=== PATIENT | male | born 1960 | race Caucasian/White ===

== ENCOUNTER 2021-05-01 14:13 | Inpatient (IN) | payer OTHER ==
[~2021-05-01] VITALS: Ht 170.2 cm; Wt 107.1 kg
--- NOTE | 2021-05-01 14:22 | PHYS DOC ---
Past Medical History Past Medical History: CAD, CHF, Diabetes-Type II, High Cholesterol, Hyper tension, UT Past Surgical History: Coronary Bypass Surgery, Other Additional Past Surgical Histo: R wrist; right foot; cataracts Smoking Status: Former Smoker Alcohol Use: Rarely General Adult EDM: Chief Complaint: LOWER EXTREMITY SWELLING HPI: HPI: Patient is a 61 year old female who presents with report of feeling swollen all over. Symptoms have been progressing for the past few weeks. He has noticed some redness and rash and itching on his feet. He ports dyspnea, dyspnea exertion. He also describes PND and orthopnea symptoms. He denies chest pain. He denies dizziness diaphoresis, nausea vomiting, abdominal pain. He does report abdominal fullness. He has a history of hypertension, high cholesterol, diabetes mellitus. He reports that he has no history of any arrhythmia, he appears to be in atrial fibrillation with RVR. He denies having been told this in the past. However, when I reviewed his records, he was diagnosed with a drip fibrillation with RVR back in 2019. He was told to follow-up with cardiology at that time. Per the inpatient notes, the patient had requested to follow-up with cardiology. The patient has no recollection of this discussion, no recollection of being told he has atrial fibrillation, and he never followed up with any cardiology services of any kind since then. He has history of UT with coronary artery bypass graft. He denies fevers or chills. He has been fully vaccinated gets Covid 19, including booster. He has not seen his primary care physician for this problem. Review of Systems: Review of Systems: Constitutional: Denies fever or chills. [] HENT: Denies nasal congestion or sore throat. [] Respiratory: Denies cough. Reports dyspnea at rest, dyspnea exertion, PND and orthopnea symptoms. Denies hemoptysis Cardiovascular: Denies chest pain and reports abdominal swelling, peripheral edema GI: Denies abdominal pain, nausea, vomiting or diarrhea : Denies urinary symptoms Musculoskeletal: Denies back pain or joint pain. Lower extremity swelling Integument: Rash on lower legs and bilateral feet Neurologic: Denies headache, focal weakness or sensory changes. [] Psychiatric: Anxiety as a pertains to current clinical condition. Heart Score: C/O Chest Pain: No Risk Factors: Risk Factors: DM, Current or recent (<one month) smoker, HTN, HLP, family history of CAD, obesity. Risk Scores: Score 0 - 3: 2.5% MACE over next 6 weeks - Discharge Home Score 4 - 6: 20.3% MACE over next 6 weeks - Admit for Clinical Observation Score 7 - 10: 72.7% MACE over next 6 weeks - Early Invasive Strategies Allergies: Allergies: Allergies Coded Allergies Type Severity Reaction Last Updated Verified Penicillins Allergy Intermediate hives 01/27/20 Yes Physical Exam: PE: Constitutional: Well developed, well nourished, no acute distress, he is chronically ill-appearing. Mildly to moderately ill-appearing acutely. HENT: Normocephalic, atraumatic, oropharynx patent and clear, mucous membranes moist Eyes: Active are clear, sclera anicteric Neck: Trachea is midline, no meningismus. Mild JVD noted Cardiovascular: Irregularly irregular, rate in the 40s and 150s, insistent with atrial fibrillation with RVR. +2 radial pulses bilaterally. Cap refill is brisk. Lungs & Thorax: Diminished breath sounds in bilateral bases, fine rales in bilateral bases. Mid and upper lung zarate are clear, no wheezing, no stridor, very mild tachypnea, no significant distress Abdomen: Abdomen is obese, mildly distended, no significant fluid, though distention indicates likely underlying ascites, nontender to palpation. No CVA tenderness. No flank abdominal ecchymoses. No palpable pulsatile mass Skin: Warm, dry. Venous stasis changes bilateral feet and anterior lower extremities. There appear to be superficial scratch chuy type abrasions on the dorsum of his feet and anterior lower legs. No petechiae. Back: No tenderness, no CVA tenderness. [] Extremities: No tenderness, no cyanosis, no clubbing, ROM intact, bilateral, symmetric 3+ pitting lower extremity edema. Neurologic: Alert and oriented X 3, normal motor function, normal sensory function, no focal deficits noted. [] Psychologic: He is anxious but pleasant and cooperative. EKG: EKG: EKG is interpreted at 1423 Rhythm is atrial fibrillation with RVR Rate is 153 bpm No STEMI Radiology/Procedures: Radiology/Procedures: IMAGING REPORT Signed PATIENT: SHONDA PLUMMER DACCOUNT: [id number] : 1960 LOCATION: ER AGE: 61 SEX: M EXAM STATUS: REG ER ORD. PHYSICIAN: ANDRE TORRES DO REASON: dyspnea PROCEDURE: PORTABLE CHEST 1V AP chest. HISTORY: Dyspnea AP view was taken of the chest. Heart is enlarged. There is no definite effusion. There is mild vascular congestion. There are no confluent infiltrates. IMPRESSION: 1. Cardiomegaly with mild vascular congestion. Electronically signed by: Teja Mathis MD (05/01/2021 3:17 PM) [facility] DICTATED and SIGNED BY: TEJA MATHIS MD DATE: 05/01/21 [id number] 0 Course & Med Decision Making: Course & Med Decision Making Pertinent Labs and Imaging studies reviewed. (See chart for details) Patient is given aspirin. IV diltiazem bolus and drip initiated. He did have an episode of relative hypotension. He was started on maintenance fluids. His blood pressure improved. He is given a dose of IV Lasix. IV heparin drip ordered. I discussed the findings, differential diagnosis and plan of care with him. I explained my recommendation for hospitalization, cardiology consultation. He is comfortable with this plan of care. His heart rate is much improved. Vital signs are stable. O2 saturation stable. He is excepted for admission by Dr. Katz. Lane Disclaimer: Lane Disclaimer: This electronic medical record was generated, in whole or in part, using a voice recognition dictation system. Departure Departure Impression: Primary Impression: Atrial fibrillation with rapid ventricular response Additional Impressions: Congestive heart failure Qualified Codes: I50.9 - Heart failure, unspecified Anasarca Acute kidney injury Disposition: ADMITTED INPATIENT Admitting Physician: SID (Dr. Katz) Condition: GUARDED Referrals: Kaleb SY MD (PCP) ANDRE TORRES DO May 01, 2021 14:22
[2021-05-01] MEDS ORDERED: ASPIRIN ENTERIC COATED 325 MG TABLET.DR. PO ONE (14:30)
--- NOTE | 2021-05-01 15:19 | RAD ---
AP chest. HISTORY: Dyspnea AP view was taken of the chest. Heart is enlarged. There is no definite effusion. There is mild vascu lar congestion. There are no confluent infiltrates. IMPRESSION: 1. Cardiomegaly with mild vascular congestion. Electronically signed by: Teja Mathis MD (05/01/2021 3:17 PM) [facility]
[2021-05-01] MEDS ORDERED: IV NORMAL SALINE 1000ML BAG 1,000 ML IV ONE (15:45)
[2021-05-01 16:04] LABS: BASO % 1 % (0-3); EOS # 0.1 x10^3/uL (0.0-0.7); EOS % 1 % (0-3); HEMOGLOBIN 13.6 g/dL (13.0-17.5); LYMPH # 0.8 x10^3/uL (1.0-4.8); LYMPH % 9 % (24-48); MEAN CORPUSCULAR HEMOGLOBIN 26 pg (25-35); MEAN CORPUSCULAR HGB CONC 32 g/dL (31-37); MEAN CORPUSCULAR VOLUME 80 fL (79-100); MONO # 0.5 x10^3/uL (0.0-1.1); MONO % 5 % (0-9); NEUT # 8.2 x10^3/uL (1.8-7.7); NEUT % 85 % (31-73); PLATELET COUNT 196 x10^3/uL (140-400); RED BLOOD COUNT 5.26 x10^6/uL (4.30-5.70); WHITE BLOOD COUNT 9.6 x10^3/uL (4.0-11.0)
[2021-05-01 16:12] LABS: PROTHROMBIN TIME PATIENT 16.2 SEC (11.7-14.0)
[2021-05-01 16:23] LABS: CALCIUM 8.5 mg/dL (8.5-10.1); CREATININE 2.4 mg/dL (0.7-1.3); GFR 27.8; POTASSIUM 4.2 mmol/L (3.5-5.1)
[2021-05-01 16:30] LABS: ALBUMIN/GLOBULIN RATIO 1.4 (1.0-1.7); MAGNESIUM 2.6 mg/dL (1.8-2.4); TOTAL BILIRUBIN 1.2 mg/dL (0.2-1.0); TOTAL PROTEIN 6.9 g/dL (6.4-8.2)
[2021-05-01] MEDS ORDERED: FUROSEMIDE 20 MG/2 ML VIAL. IVP ONE (16:30)
[2021-05-01] MEDS ORDERED: HEPARIN for IV BOLUS 10,000 UNIT/10 ML VIAL. IV PRN (17:00)
[2021-05-01] MEDS ORDERED: ONDANSETRON PF 4 MG/2 ML VIAL. IVP ONE (17:15)
[2021-05-01] MEDS: HEPARIN 25,000UTS/250ML PREMIX 250 ML IV PRN ×2 (18:09→18:11)
--- NOTE | 2021-05-01 19:31 | PDOC1 ---
History and Physical Date of Service: DOS: DATE: 05/01/21 TIME: 19:30 Chief Complaint: Chief Complain: Lower extremity swelling History of Present Illness: HPI: 61-year-old male with past medical history of CAD, CHF, diabetes mellitus type 2, dyslipidemia, hypertension, CABG who comes in with bilateral lower extremity swelling that has occurred in the last month. Patient also noticed some redness and rash and itchiness on his feet. He decided to come today because he started feel shortness of breath. He also endorses orthopnea symptoms. Denies any fevers, chest pain, diaphoresis, palpitations, syncope, nausea vomiting or abdominal pain. Patient does have a history of atrial fibrillation which he has not started any anticoagulation. Patient does come today with heart rate in the 160s. He is started on a heparin drip and Cardizem drip. Patient is Covid vaccinated. Past Medical/Surgical History: PMH/PSH: Past Medical History: CAD, Diabetes-Type II, High Cholesterol, Hypertension, [place] Past Surgical History: Coronary Bypass Surgery, R wrist; right foot; cataracts Allergies: Allergies: Coded Allergies: Penicillins (Verified Allergy, Intermediate, hives, 01/27/20) Family History: Family History: Reviewed with no relative findings in the chart Social History: Social History: Smoking Status: Former Smoker Alcohol Use: Rarely Current Medications: Current Medications Current Medications Diltiazem HCl (Cardizem Iv Push) 10 mg 1X ONCE IVP Last administered on 05/01/21at 14:30; Start 05/01/21 at 14:30; Stop 05/01/21 at 14:32; Status DC Aspirin (Ecotrin) 325 mg 1X ONCE PO Last administered on 05/01/21at 14:30; Start 05/01/21 at 14:30; Stop 05/01/21 at 14:32; Status DC Lorazepam (Ativan Inj) 2 mg 1X ONCE IVP ; Start 05/01/21 at 15:30; Stop 05/01/21 at 15:43; Status DC Diltiazem HCl 125 mg/Sodium Chloride 125 ml @ 5 mls/hr CONT PRN IV PER PROTOCOL Last administered on 05/01/21at 16:11; Start 05/01/21 at 15:45 Sodium Chloride 1,000 ml @ 75 mls/hr 1X ONCE IV Last administered on 05/01/21at 16:15; Start 05/01/21 at 15:45; Stop 05/02/21 at 05:04 Furosemide (Lasix) 20 mg 1X ONCE IVP Last administered on 05/01/21at 17:55; Start 05/01/21 at 16:30; Stop 05/01/21 at 16:31; Status DC Heparin Sodium/ Dextrose 250 ml @ 10 mls/hr CONT PRN IV PER PROTOCOL Last administered on 05/01/21at 18:11; Start 05/01/21 at 17:00 Heparin Sodium (Porcine) (Heparin Sodium) 2,600 unit PRN Q6HRS PRN IV FOR UFH LEVEL LESS THAN 0.2; Start 05/01/21 at 17:00 Ondansetron HCl (Zofran) 4 mg 1X ONCE IVP Last administered on 05/01/21at 17:33; Start 05/01/21 at 17:15; Stop 05/01/21 at 17:16; Status DC Active Scripts Active ROS: Review of Systems Review of System REVIEW OF SYSTEMS: GENERAL: Denies weakness SKIN: No bruising, hair changes or rashes. EYES: No blurred, double or loss of vision. NOSE AND THROAT: No history of nosebleeds, hoarseness or sore throat. HEART: No history of palpitations, chest pain or shortness of breath on exertion. LUNGS: Positive shortness of breath GASTROINTESTINAL: Denies changes in appetite, nausea, vomiting, diarrhea or constipation. GENITOURINARY: No history of frequency, urgency, hesitancy or nocturia. NEUROLOGIC: Denies history of numbness, tingling, or tremor. PSYCHIATRIC: No history of panic, anxiety or depression. ENDOCRINE: No history of heat or cold intolerance, polyuria or polydipsia. EXTREMITIES: Positive for swelling Physical Exam: Vital Signs: Vital Signs Date Time Temp Pulse Resp B/P (MAP) Pulse Ox O2 Delivery O2 Flow Rate FiO2 05/01/21 14:30 145 136/73 05/01/21 14:19 97.5 24 Room Air 97.5 Physcial Exam: General: Well developed, well nourished, no acute distress, well appearing HEENT: Pupils equally round and reactive to light, EOMI, no discharge, normal conjunctiva Neck: Supple, no nuchal rigidity, no JVD, trachea midline, no tenderness Cardiac: Irregularly irregular with rates in the 40s and 150s no murmurs, no gallops, no rubs Chest/Lungs: CTAB, no wheeze, no rhonchi, no crackles Abdomen: soft, non-distended, no guarding, no peritoneal signs, non-tender Back: No tenderness Extremities: Bilateral +3 pedal edema, pulses intact, non-tender,capillary refill <3 sec bilateral upper and lower extremities, Neuro: Alert and oriented x 4, no focal deficits, normal speech Labs: Labs: Laboratory Tests Test 05/01/21 15:50 White Blood Count 9.6 x10^3/uL (4.0-11.0) Red Blood Count 5.26 x10^6/uL (4.30-5.70) Hemoglobin 13.6 g/dL (13.0-17.5) Hematocrit 42.0 % (39.0-53.0) Mean Corpuscular Volume 80 fL (79-100) Mean Corpuscular Hemoglobin 26 pg (25-35) Mean Corpuscular Hemoglobin Concent 32 g/dL (31-37) Red Cell Distribution Width 16.0 % (11.5-14.5) Platelet Count 196 x10^3/uL (140-400) Neutrophils (%) (Auto) 85 % (31-73) Lymphocytes (%) (Auto) 9 % (24-48) Monocytes (%) (Auto) 5 % (0-9) Eosinophils (%) (Auto) 1 % (0-3) Basophils (%) (Auto) 1 % (0-3) Neutrophils # (Auto) 8.2 x10^3/uL (1.8-7.7) Lymphocytes # (Auto) 0.8 x10^3/uL (1.0-4.8) Monocytes # (Auto) 0.5 x10^3/uL (0.0-1.1) Eosinophils # (Auto) 0.1 x10^3/uL (0.0-0.7) Basophils # (Auto) 0.0 x10^3/uL (0.0-0.2) Prothrombin Time 16.2 SEC (11.7-14.0) Prothromb Time International Ratio 1.3 (0.8-1.1) Activated Partial Thromboplast Time 29 SEC (24-38) Sodium Level 142 mmol/L (136-145) Potassium Level 4.2 mmol/L (3.5-5.1) Chloride Level 101 mmol/L (98-107) Carbon Dioxide Level 27 mmol/L (21-32) Anion Gap 14 (6-14) Blood Urea Nitrogen 50 mg/dL (8-26) Creatinine 2.4 mg/dL (0.7-1.3) Estimated GFR (Cockcroft-Gault) 27.8 BUN/Creatinine Ratio 21 (6-20) Glucose Level 126 mg/dL (70-99) Calcium Level 8.5 mg/dL (8.5-10.1) Magnesium Level 2.6 mg/dL (1.8-2.4) Total Bilirubin 1.2 mg/dL (0.2-1.0) Aspartate Amino Transf (AST/SGOT) 36 U/L (15-37) Alanine Aminotransferase (ALT/SGPT) 59 U/L (16-63) Alkaline Phosphatase 39 U/L (46-116) Troponin I High Sensitivity 72 ng/L (4-75) DB-Vtx-T-Type Natriuretic Peptide 24023 pg/mL (0-124) Total Protein 6.9 g/dL (6.4-8.2) Albumin 4.0 g/dL (3.4-5.0) Albumin/Globulin Ratio 1.4 (1.0-1.7) Thyroid Stimulating Hormone (TSH) 3.784 uIU/mL (0.358-3.74) Laboratory Tests Test 05/01/21 15:50 White Blood Count 9.6 x10^3/uL (4.0-11.0) Red Blood Count 5.26 x10^6/uL (4.30-5.70) Hemoglobin 13.6 g/dL (13.0-17.5) Hematocrit 42.0 % (39.0-53.0) Mean Corpuscular Volume 80 fL (79-100) Mean Corpuscular Hemoglobin 26 pg (25-35) Mean Corpuscular Hemoglobin Concent 32 g/dL (31-37) Red Cell Distribution Width 16.0 % (11.5-14.5) Platelet Count 196 x10^3/uL (140-400) Neutrophils (%) (Auto) 85 % (31-73) Lymphocytes (%) (Auto) 9 % (24-48) Monocytes (%) (Auto) 5 % (0-9) Eosinophils (%) (Auto) 1 % (0-3) Basophils (%) (Auto) 1 % (0-3) Neutrophils # (Auto) 8.2 x10^3/uL (1.8-7.7) Lymphocytes # (Auto) 0.8 x10^3/uL (1.0-4.8) Monocytes # (Auto) 0.5 x10^3/uL (0.0-1.1) Eosinophils # (Auto) 0.1 x10^3/uL (0.0-0.7) Basophils # (Auto) 0.0 x10^3/uL (0.0-0.2) Prothrombin Time 16.2 SEC (11.7-14.0) Prothromb Time International Ratio 1.3 (0.8-1.1) Activated Partial Thromboplast Time 29 SEC (24-38) Sodium Level 142 mmol/L (136-145) Potassium Level 4.2 mmol/L (3.5-5.1) Chloride Level 101 mmol/L (98-107) Carbon Dioxide Level 27 mmol/L (21-32) Anion Gap 14 (6-14) Blood Urea Nitrogen 50 mg/dL (8-26) Creatinine 2.4 mg/dL (0.7-1.3) Estimated GFR (Cockcroft-Gault) 27.8 BUN/Creatinine Ratio 21 (6-20) Glucose Level 126 mg/dL (70-99) Calcium Level 8.5 mg/dL (8.5-10.1) Magnesium Level 2.6 mg/dL (1.8-2.4) Total Bilirubin 1.2 mg/dL (0.2-1.0) Aspartate Amino Transf (AST/SGOT) 36 U/L (15-37) Alanine Aminotransferase (ALT/SGPT) 59 U/L (16-63) Alkaline Phosphatase 39 U/L (46-116) Troponin I High Sensitivity 72 ng/L (4-75) LP-Zws-F-Type Natriuretic Peptide 73551 pg/mL (0-124) Total Protein 6.9 g/dL (6.4-8.2) Albumin 4.0 g/dL (3.4-5.0) Albumin/Globulin Ratio 1.4 (1.0-1.7) Thyroid Stimulating Hormone (TSH) 3.784 uIU/mL (0.358-3.74) Images: Images PROCEDURE: PORTABLE CHEST 1V AP chest. HISTORY: Dyspnea AP view was taken of the chest. Heart is enlarged. There is no definite effusion. There is mild vascular congestion. There are no confluent infiltrates. IMPRESSION: 1. Cardiomegaly with mild vascular congestion. Assessment/Plan Assessment/Plan Problem List: Acute CHF exacerbation, diastolic, systolic with LVEF Acute on chronic kidney injury due to vasomotor nephropathy ATN Afib RVR Morbid Obesity Hx of CHF Hx of CAD Hx of CKD Hx of A. fib, not on any anticoagulants Hx of CABG History of diabetes mellitus type 2 Admit to hospitalist service for further management IV Lasix as needed daily Cardiology consult Continue telemetry monitoring Continue Cardizem drip with targeted heart rate between 60-110 Continue heparin drip, transition to likely Eliquis in the next day or so Counseled on weight loss via diet and exercise Strict I's/O Avoid nephrotoxic agents Continue heparin drip for DVT prophylaxis Cardiac diet CODE STATUS full Discussed with RN and SW Disposition inpatient management as above DPOA: Justifications for Admission Other Justification CARMELA FABIAN MD May 01, 2021 19:31
[2021-05-01] MEDS ORDERED: SENNOSIDES 8.6 MG TABLET PO PRN (19:45)
[2021-05-01] MEDS ORDERED: DEXTROSE 50% 25 GM / 50ML DISP.SYRIN. IV PRN ×3 (19:45→23:15)
[2021-05-01] MEDS ORDERED: DOCUSATE SODIUM 100 MG CAPSULE. PO PRN (19:45)
[2021-05-01] MEDS ORDERED: LORazepam 0.5 MG TABLET PO PRN (19:45)
[2021-05-01] MEDS ORDERED: ZOLPIDEM 5 MG TABLET. PO PRN (19:45)
[2021-05-01] MEDS ORDERED: ACETAMINOPHEN 325 MG TABLET. PO PRN (19:45)
[2021-05-01] MEDS ORDERED: ONDANSETRON PF 4 MG/2 ML VIAL. IVP PRN (19:45)
[2021-05-01] MEDS ORDERED: diphenhydrAMINE HCL 25 MG CAPSULE PO PRN ×2 (19:45)
[2021-05-01] MEDS ORDERED: PROCHLORPERAZINE 10 MG/2 ML VIAL. IV PRN (19:45)
[2021-05-01] MEDS ORDERED: diphenhydrAMINE 50 MG/ML VIAL IVP PRN (19:45)
[2021-05-01 19:54] LABS: CLARITY,URINE CLOUDY; COLOR,URINE BROWN
[2021-05-01 19:55] LABS: BILIRUBIN,URINE SMALL (NEG); NITRITE,URINE NEGATIVE (NEG); PH,URINE 5.5 (<5.0-8.0); PROTEIN,URINE 100 mg/dL (NEG-TRACE)
[2021-05-01 19:58] LABS: RBC,URINE FIELD OBSCURED /HPF (0-2)
[2021-05-01 20:00] LABS: HYALINE CASTS, URINE MODERATE /HPF
[2021-05-01 20:03] LABS: BACTERIA,URINE 0 /HPF (0-FEW)
--- NOTE | 2021-05-01 21:00 | NUR ---
The patient, SHONDA PLUMMER, 61 y/o, M admitted by CARMELA FABIAN MD, was given written information regarding hospital policies, unit procedures and contact persons. Valuables were checked and documented. pt arrived to unit with cardizem gtt, heparin gtt and normal saline infusing as per order. call light in reach, will cont to monitor pt status and safety. pmrn
[2021-05-01 21:15] VITALS: BP 103/72
[2021-05-01 21:54] VITALS: BP 108/73
[2021-05-01] MEDS ORDERED: IV DEXTROSE 5% 250 ML BAG. IV PRN (23:15)
[2021-05-01] MEDS ORDERED: DULA1.5P SQ (23:16)
[2021-05-01] MEDS ORDERED: EZET10TA20 PO (23:16)
[2021-05-01] MEDS ORDERED: INSU100I13 SQ (23:16)
[2021-05-01] MEDS ORDERED: LINA5TAB PO (23:16)
[2021-05-01] MEDS ORDERED: ATOR40TA59 PO (23:16)
[2021-05-01] MEDS ORDERED: METO25TA4 PO (23:16)
[2021-05-01] MEDS ORDERED: ASPI-630 PO (23:16)
[2021-05-01 23:44] VITALS: BP 103/72
[2021-05-02] VITALS (29 sets, daily range): BP systolic 59–138; BP diastolic 36–73
[2021-05-02] MEDS ORDERED: HEPARIN 25,000UTS/250ML PREMIX 250 ML IV PRN (01:19)
[2021-05-02] MEDS ORDERED: HEPARIN for IV BOLUS 10,000 UNIT/10 ML VIAL. IV PRN (01:30)
[2021-05-02 06:23] LABS: BASO # 0.1 x10^3/uL (0.0-0.2); BASO % 1 % (0-3); EOS # 0.1 x10^3/uL (0.0-0.7); EOS % 1 % (0-3); HEMATOCRIT 41.8 % (39.0-53.0); HEMOGLOBIN 12.9 g/dL (13.0-17.5); LYMPH # 1.5 x10^3/uL (1.0-4.8); LYMPH % 13 % (24-48); MEAN CORPUSCULAR HEMOGLOBIN 25 pg (25-35); MEAN CORPUSCULAR HGB CONC 31 g/dL (31-37); MEAN CORPUSCULAR VOLUME 81 fL (79-100); MONO # 0.9 x10^3/uL (0.0-1.1); MONO % 8 % (0-9); NEUT # 8.9 x10^3/uL (1.8-7.7); NEUT % 77 % (31-73); PLATELET COUNT 197 x10^3/uL (140-400); RED BLOOD COUNT 5.15 x10^6/uL (4.30-5.70); RED CELL DISTRIBUTION WIDTH 16.5 % (11.5-14.5); WHITE BLOOD COUNT 11.5 x10^3/uL (4.0-11.0)
[2021-05-02 06:41] LABS: CALCIUM 8.4 mg/dL (8.5-10.1); CREATININE 2.5 mg/dL (0.7-1.3); GFR 26.5; MAGNESIUM 2.6 mg/dL (1.8-2.4); PHOSPHORUS 5.2 mg/dL (2.6-4.7); POTASSIUM 4.8 mmol/L (3.5-5.1)
--- NOTE | 2021-05-02 07:46 | EKG ---
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
[2021-05-02] MEDS: INSULIN LISPRO 300 UNITS/3 ML VIAL. SQ SCH ×3 (08:00→16:42)
[2021-05-02] MEDS: ASPIRIN CHEWABLE 81 MG TABLET. PO SCH (08:32)
[2021-05-02] MEDS ORDERED: METOPROLOL TART IMMED RELEASE 25 MG TABLET. PO SCH (09:00)
--- NOTE | 2021-05-02 10:06 | PDOC2 ---
KIARA DAWKINS SECTION LEADER 05/02/21 1006: CARDIAC CONSULT DATE OF CONSULT Date of Consult DATE: 05/02/21 TIME: 09:30 REASON FOR CONSULT Reason for Consult: AFIB RVR, CHF REFERRING PHYSICIAN Referring Physician: Sterling SOURCE Source: Chart review, Patient HISTORY OF PRESENT ILLNESS HISTORY OF PRESENT ILLNESS This is a 61 yo male admitted for complains of of leg swelling. Positive for orthopnea and has been having SOA. Upon admission he was noted with HR above 150s. He has been feeling his heart pounding. His symptoms have been going on on and off in the last month. He has gained about 15 pounds in the last month. No chest pain, fever or chills. He has been having abdominal discomfort and nausea. He has not seen his wound/ostomy clinical nurse specialist for over a year and would like to transfer to our care. Hence he has not taken aleiquis nor amiodarone for a while now. No dizziness or passing out. PAST MEDICAL HISTORY Cardiovascular: AFIB, CAD, HTN, CT, Hyperlipidemia Pulmonary: Other (covid-19 01/2020) CENTRAL NERVOUS SYSTEM: Other (No pertinent history) Renal/: Chronic renal insuff Endocrine: Diabetes PAST SURGICAL HISTORY Past Surgical History: CABG ((FENG to LAD, SVG to OM and SVG to PDA on 06/30/2014 at [facility])) FAMILY HISTORY Family History: Coronary Artery Disease (mother) SOCIAL HISTORY Smoke: No ALCOHOL: rare Drugs: None Lives: with Family CURRENT MEDICATIONS CURRENT MEDICATIONS Current Medications Medications (Trade) Dose Ordered Sig/Lina Route PRN Reason Start Time Stop Time Status Last Admin Dose Admin Diltiazem HCl (Cardizem Iv Push) 10 mg 1X ONCE IVP 05/01/21 14:30 05/01/21 14:32 DC 05/01/21 14:30 Aspirin (Ecotrin) 325 mg 1X ONCE PO 05/01/21 14:30 05/01/21 14:32 DC 05/01/21 14:30 Diltiazem HCl 125 mg/Sodium Chloride 125 ml @ 5 mls/hr CONT PRN IV PER PROTOCOL 05/01/21 15:45 05/02/21 05:39 Sodium Chloride 1,000 ml @ 75 mls/hr 1X ONCE IV 05/01/21 15:45 05/02/21 05:04 DC 05/01/21 16:15 Furosemide (Lasix) 20 mg 1X ONCE IVP 05/01/21 16:30 05/01/21 16:31 DC 05/01/21 17:55 Heparin Sodium/ Dextrose 250 ml @ 10 mls/hr CONT PRN IV PER PROTOCOL 05/01/21 17:00 05/02/21 01:19 DC 05/01/21 18:11 Ondansetron HCl (Zofran) 4 mg 1X ONCE IVP 05/01/21 17:15 05/01/21 17:16 DC 05/01/21 17:33 Aspirin (Aspirin Chewable) 81 mg DAILY PO 05/02/21 09:00 05/02/21 08:32 Metoprolol Tartrate (Lopressor) 12.5 mg DAILY PO 05/02/21 09:00 05/02/21 08:32 Heparin Sodium (Porcine) (Heparin Sodium) 2,900 unit PRN Q6HRS PRN IV FOR UFH LEVEL LESS THAN 0.2 05/02/21 01:30 05/02/21 01:44 ALLERGIES ALLERGIES: Coded Allergies: Penicillins (Verified Allergy, Intermediate, hives, 01/27/20) ROS Review of System 14 point ROS evaluated with pertinent positives noted per HPI PHYSICAL EXAM General: Alert, Oriented X3, Cooperative, No acute distress HEENT: Atraumatic, Mucous membr. moist/pink Lungs: Clear to auscultation, Normal air movement Heart: Other (AFIB, distant heart sounds) Abdomen: Soft, No tenderness Extremities: No cyanosis, Other (4+ bilateral LE pitting edema) Skin: No breakdown, No significant lesion Neuro: Normal speech, Sensation intact Psych/Mental Status: Mental status NL, Mood NL MUSCULOSKELETAL: Osteoarthritic changes both hands VITALS/I&O VITALS/I&O: Vital Signs Date Time Temp Pulse Resp B/P (MAP) Pulse Ox O2 Delivery O2 Flow Rate FiO2 05/02/21 08:32 102 138/63 05/02/21 07:00 96.0 18 99 Room Air 96.0 I & O 05/01/21 05/01/21 05/02/21 15:00 23:00 07:00 Intake Total 423 ml 1596.81 ml Output Total 100 ml Balance 423 ml 1496.81 ml LABS Lab: Laboratory Tests Test 05/01/21 15:50 05/01/21 19:05 05/01/21 19:20 05/01/21 21:50 White Blood Count 9.6 x10^3/uL (4.0-11.0) Red Blood Count 5.26 x10^6/uL (4.30-5.70) Hemoglobin 13.6 g/dL (13.0-17.5) Hematocrit 42.0 % (39.0-53.0) Mean Corpuscular Volume 80 fL (79-100) Mean Corpuscular Hemoglobin 26 pg (25-35) Mean Corpuscular Hemoglobin Concent 32 g/dL (31-37) Red Cell Distribution Width 16.0 % (11.5-14.5) H Platelet Count 196 x10^3/uL (140-400) Neutrophils (%) (Auto) 85 % (31-73) H Lymphocytes (%) (Auto) 9 % (24-48) L Monocytes (%) (Auto) 5 % (0-9) Eosinophils (%) (Auto) 1 % (0-3) Basophils (%) (Auto) 1 % (0-3) Neutrophils # (Auto) 8.2 x10^3/uL (1.8-7.7) H Lymphocytes # (Auto) 0.8 x10^3/uL (1.0-4.8) L Monocytes # (Auto) 0.5 x10^3/uL (0.0-1.1) Eosinophils # (Auto) 0.1 x10^3/uL (0.0-0.7) Basophils # (Auto) 0.0 x10^3/uL (0.0-0.2) Prothrombin Time 16.2 SEC (11.7-14.0) H Prothrombin Time INR 1.3 (0.8-1.1) H Activated Partial Thromboplast Time 29 SEC (24-38) Sodium Level 142 mmol/L (136-145) Potassium Level 4.2 mmol/L (3.5-5.1) Chloride Level 101 mmol/L (98-107) Carbon Dioxide Level 27 mmol/L (21-32) Anion Gap 14 (6-14) Blood Urea Nitrogen 50 mg/dL (8-26) H Creatinine 2.4 mg/dL (0.7-1.3) H Estimated GFR (Cockcroft-Gault) 27.8 BUN/Creatinine Ratio 21 (6-20) H Glucose Level 126 mg/dL (70-99) H Calcium Level 8.5 mg/dL (8.5-10.1) Magnesium Level 2.6 mg/dL (1.8-2.4) H Total Bilirubin 1.2 mg/dL (0.2-1.0) H Aspartate Amino Transferase (AST) 36 U/L (15-37) Alanine Aminotransferase (ALT) 59 U/L (16-63) Alkaline Phosphatase 39 U/L (46-116) L Troponin I High Sensitivity 72 ng/L (4-75) 72 ng/L (4-75) QW-Pgl-I-Type Natriuretic Peptide 29092 pg/mL (0-124) H Total Protein 6.9 g/dL (6.4-8.2) Albumin 4.0 g/dL (3.4-5.0) Albumin/Globulin Ratio 1.4 (1.0-1.7) Thyroid Stimulating Hormone (TSH) 3.784 uIU/mL (0.358-3.74) H Urine Collection Type Unknown Urine Color Brown Urine Clarity Cloudy Urine pH 5.5 (<5.0-8.0) Urine Specific [place] 1.025 (1.000-1.030) Urine Protein 100 mg/dL (NEG-TRACE) Urine Glucose (UA) Negative mg/dL (NEG) Urine Ketones (Stick) Negative mg/dL (NEG) Urine Blood Large (NEG) Urine Nitrite Negative (NEG) Urine Bilirubin Small (NEG) Urine Urobilinogen Dipstick 1.0 mg/dL (0.2 mg/dL) Urine Leukocyte Esterase Negative (NEG) Urine RBC Field obscured /HPF (0-2) Urine WBC 5-10 /HPF (0-4) Urine Squamous Epithelial Cells Occ /LPF Urine Bacteria 0 /HPF (0-FEW) Urine Hyaline Casts Moderate /HPF Urine Mucus Mod /LPF Glucose (Fingerstick) 50 mg/dL (70-99) L Test 05/01/21 22:00 05/01/21 22:45 05/01/21 23:06 05/02/21 00:40 Troponin I High Sensitivity 76 ng/L (4-75) H Glucose (Fingerstick) 56 mg/dL (70-99) L 95 mg/dL (70-99) Heparin Anti-Xa Act, Unfractionated < 0.10 IU/mL (0.30-0.70) L Test 05/02/21 00:44 05/02/21 06:10 05/02/21 07:10 Glucose (Fingerstick) 180 mg/dL (70-99) H 92 mg/dL (70-99) White Blood Count 11.5 x10^3/uL (4.0-11.0) H Red Blood Count 5.15 x10^6/uL (4.30-5.70) Hemoglobin 12.9 g/dL (13.0-17.5) L Hematocrit 41.8 % (39.0-53.0) Mean Corpuscular Volume 81 fL (79-100) Mean Corpuscular Hemoglobin 25 pg (25-35) Mean Corpuscular Hemoglobin Concent 31 g/dL (31-37) Red Cell Distribution Width 16.5 % (11.5-14.5) H Platelet Count 197 x10^3/uL (140-400) Neutrophils (%) (Auto) 77 % (31-73) H Lymphocytes (%) (Auto) 13 % (24-48) L Monocytes (%) (Auto) 8 % (0-9) Eosinophils (%) (Auto) 1 % (0-3) Basophils (%) (Auto) 1 % (0-3) Neutrophils # (Auto) 8.9 x10^3/uL (1.8-7.7) H Lymphocytes # (Auto) 1.5 x10^3/uL (1.0-4.8) Monocytes # (Auto) 0.9 x10^3/uL (0.0-1.1) Eosinophils # (Auto) 0.1 x10^3/uL (0.0-0.7) Basophils # (Auto) 0.1 x10^3/uL (0.0-0.2) Heparin Anti-Xa Act, Unfractionated 0.34 IU/mL (0.30-0.70) Sodium Level 139 mmol/L (136-145) Potassium Level 4.8 mmol/L (3.5-5.1) Chloride Level 103 mmol/L (98-107) Carbon Dioxide Level 21 mmol/L (21-32) Anion Gap 15 (6-14) H Blood Urea Nitrogen 51 mg/dL (8-26) H Creatinine 2.5 mg/dL (0.7-1.3) H Estimated GFR (Cockcroft-Gault) 26.5 Glucose Level 101 mg/dL (70-99) H Calcium Level 8.4 mg/dL (8.5-10.1) L Phosphorus Level 5.2 mg/dL (2.6-4.7) H Magnesium Level 2.6 mg/dL (1.8-2.4) H Laboratory Tests 05/01/21 15:50 05/02/21 06:10 Laboratory Tests 05/01/21 15:50 05/02/21 06:10 ASSESSMENT/PLAN ASSESSMENT/PLAN 1. Acute on chronic CHF with possible diastolic dysfunction 2. AFIB RVR: known 3. CAD: past CABG 2014, clinically stable 4. HTN 5. HLP 6. DM2 7. Hx of covid-19 01/2020 8. CKD4 9. Possible JOSELUIS Recommendations 1. DC heparin and cardizem drip and start on metoprolol and eliquis 2. TTE 3. Lasix therapy 4. Secondary prevention measures 5. Follow up in our office. 6. Will need referral to nephrology. No ACEi/ARB at this time MARCO ANTONIO GRANADOS MD 05/02/21 1709: CARDIAC CONSULT ASSESSMENT/PLAN ASSESSMENT/PLAN Pt. seen and examined. Agree with above FILM INSPECTOR note. 61 y.o male with ischemic CMP and severe acute on chronic systolic and diastolic HF Continue rate control, initiate anticoagulation. Plan for outpt CVN after resolution of HF symptoms. Will likely need outpt cath as well. Supportive care. KIARA DAWKINS APRN May 02, 2021 10:06 MARCO ANTONIO GRANADOS MD May 02, 2021 17:09
[2021-05-02] MEDS: APIXABAN 5 MG TABLET. PO SCH ×2 (10:36→20:05)
[2021-05-02] MEDS: METOPROLOL TART IMMED RELEASE 50 MG TABLET. PO SCH ×2 (10:37→20:06)
--- NOTE | 2021-05-02 11:10 | PDOC ---
[employer] PROGRESS NOTE Date of Service DOS: DATE: 05/02/21 TIME: 11:06 Chief Complaint Chief Complaint Acute on chronic systolic congestive heart failure Edema A. fib SOPHIE ATN Overweight History of CAD History of CKD History of bypass surgery History of Present Illness History of Present Illness 05/02/2021 Patient seen and examined Discussed with RN Chart reviewed He is up in the chair has a lot of edema on his lower extremities States he is still nauseated and weak Vitals/I&O Vitals/I&O: Vital Signs Date Time Temp Pulse Resp B/P (MAP) Pulse Ox O2 Delivery O2 Flow Rate FiO2 05/02/21 10:37 71 120/71 05/02/21 10:07 93.2 18 98 Room Air 93.2 I & O 05/01/21 05/01/21 05/02/21 15:00 23:00 07:00 Intake Total 423 ml 1596.81 ml Output Total 100 ml Balance 423 ml 1496.81 ml Physical Exam General: Alert, Oriented X3, Cooperative, No acute distress Heart: Other (AFIB, distant heart sounds) Abdomen: Soft, No tenderness Extremities: No cyanosis, Other (4+ bilateral LE pitting edema) Skin: No breakdown, No significant lesion Labs Labs: Laboratory Tests Test 05/01/21 15:50 05/01/21 19:05 05/01/21 19:20 05/01/21 21:50 White Blood Count 9.6 x10^3/uL (4.0-11.0) Red Blood Count 5.26 x10^6/uL (4.30-5.70) Hemoglobin 13.6 g/dL (13.0-17.5) Hematocrit 42.0 % (39.0-53.0) Mean Corpuscular Volume 80 fL (79-100) Mean Corpuscular Hemoglobin 26 pg (25-35) Mean Corpuscular Hemoglobin Concent 32 g/dL (31-37) Red Cell Distribution Width 16.0 % (11.5-14.5) Platelet Count 196 x10^3/uL (140-400) Neutrophils (%) (Auto) 85 % (31-73) Lymphocytes (%) (Auto) 9 % (24-48) Monocytes (%) (Auto) 5 % (0-9) Eosinophils (%) (Auto) 1 % (0-3) Basophils (%) (Auto) 1 % (0-3) Neutrophils # (Auto) 8.2 x10^3/uL (1.8-7.7) Lymphocytes # (Auto) 0.8 x10^3/uL (1.0-4.8) Monocytes # (Auto) 0.5 x10^3/uL (0.0-1.1) Eosinophils # (Auto) 0.1 x10^3/uL (0.0-0.7) Basophils # (Auto) 0.0 x10^3/uL (0.0-0.2) Prothrombin Time 16.2 SEC (11.7-14.0) Prothromb Time International Ratio 1.3 (0.8-1.1) Activated Partial Thromboplast Time 29 SEC (24-38) Sodium Level 142 mmol/L (136-145) Potassium Level 4.2 mmol/L (3.5-5.1) Chloride Level 101 mmol/L (98-107) Carbon Dioxide Level 27 mmol/L (21-32) Anion Gap 14 (6-14) Blood Urea Nitrogen 50 mg/dL (8-26) Creatinine 2.4 mg/dL (0.7-1.3) Estimated GFR (Cockcroft-Gault) 27.8 BUN/Creatinine Ratio 21 (6-20) Glucose Level 126 mg/dL (70-99) Calcium Level 8.5 mg/dL (8.5-10.1) Magnesium Level 2.6 mg/dL (1.8-2.4) Total Bilirubin 1.2 mg/dL (0.2-1.0) Aspartate Amino Transf (AST/SGOT) 36 U/L (15-37) Alanine Aminotransferase (ALT/SGPT) 59 U/L (16-63) Alkaline Phosphatase 39 U/L (46-116) Troponin I High Sensitivity 72 ng/L (4-75) 72 ng/L (4-75) MQ-Stg-V-Type Natriuretic Peptide 85369 pg/mL (0-124) Total Protein 6.9 g/dL (6.4-8.2) Albumin 4.0 g/dL (3.4-5.0) Albumin/Globulin Ratio 1.4 (1.0-1.7) Thyroid Stimulating Hormone (TSH) 3.784 uIU/mL (0.358-3.74) Urine Collection Type Unknown Urine Color Brown Urine Clarity Cloudy Urine pH 5.5 (<5.0-8.0) Urine Specific [place] 1.025 (1.000-1.030) Urine Protein 100 mg/dL (NEG-TRACE) Urine Glucose (UA) Negative mg/dL (NEG) Urine Ketones (Stick) Negative mg/dL (NEG) Urine Blood Large (NEG) Urine Nitrite Negative (NEG) Urine Bilirubin Small (NEG) Urine Urobilinogen Dipstick 1.0 mg/dL (0.2 mg/dL) Urine Leukocyte Esterase Negative (NEG) Urine RBC Field obscured /HPF (0-2) Urine WBC 5-10 /HPF (0-4) Urine Squamous Epithelial Cells Occ /LPF Urine Bacteria 0 /HPF (0-FEW) Urine Hyaline Casts Moderate /HPF Urine Mucus Mod /LPF Glucose (Fingerstick) 50 mg/dL (70-99) Test 05/01/21 22:00 05/01/21 22:45 05/01/21 23:06 05/02/21 00:40 Troponin I High Sensitivity 76 ng/L (4-75) Glucose (Fingerstick) 56 mg/dL (70-99) 95 mg/dL (70-99) Heparin Anti-Xa Act, Unfractionated < 0.10 IU/mL (0.30-0.70) Test 05/02/21 00:44 05/02/21 06:10 05/02/21 07:10 Glucose (Fingerstick) 180 mg/dL (70-99) 92 mg/dL (70-99) White Blood Count 11.5 x10^3/uL (4.0-11.0) Red Blood Count 5.15 x10^6/uL (4.30-5.70) Hemoglobin 12.9 g/dL (13.0-17.5) Hematocrit 41.8 % (39.0-53.0) Mean Corpuscular Volume 81 fL (79-100) Mean Corpuscular Hemoglobin 25 pg (25-35) Mean Corpuscular Hemoglobin Concent 31 g/dL (31-37) Red Cell Distribution Width 16.5 % (11.5-14.5) Platelet Count 197 x10^3/uL (140-400) Neutrophils (%) (Auto) 77 % (31-73) Lymphocytes (%) (Auto) 13 % (24-48) Monocytes (%) (Auto) 8 % (0-9) Eosinophils (%) (Auto) 1 % (0-3) Basophils (%) (Auto) 1 % (0-3) Neutrophils # (Auto) 8.9 x10^3/uL (1.8-7.7) Lymphocytes # (Auto) 1.5 x10^3/uL (1.0-4.8) Monocytes # (Auto) 0.9 x10^3/uL (0.0-1.1) Eosinophils # (Auto) 0.1 x10^3/uL (0.0-0.7) Basophils # (Auto) 0.1 x10^3/uL (0.0-0.2) Heparin Anti-Xa Act, Unfractionated 0.34 IU/mL (0.30-0.70) Sodium Level 139 mmol/L (136-145) Potassium Level 4.8 mmol/L (3.5-5.1) Chloride Level 103 mmol/L (98-107) Carbon Dioxide Level 21 mmol/L (21-32) Anion Gap 15 (6-14) Blood Urea Nitrogen 51 mg/dL (8-26) Creatinine 2.5 mg/dL (0.7-1.3) Estimated GFR (Cockcroft-Gault) 26.5 Glucose Level 101 mg/dL (70-99) Calcium Level 8.4 mg/dL (8.5-10.1) Phosphorus Level 5.2 mg/dL (2.6-4.7) Magnesium Level 2.6 mg/dL (1.8-2.4) Assessment and Plan Assessmemt and Plan Problems Medical Problems: (1) Acute kidney injury Status: Acute (2) Anasarca Status: Acute (3) Atrial fibrillation with rapid ventricular response Status: Acute (4) Congestive heart failure Status: Acu Acute on chronic systolic congestive heart failure Edema A. fib SOPHIE ATN Overweight History of CAD History of CKD History of bypass surgery Plan Cardiac monitoring IV Lasix Appreciate cardiology input Cardiology changing heparin and Cardizem drips to p.o. metoprolol and Eliquis (agree) I's and O's Avoid nephrotoxin Trend labs PT OT if possible Home meds DVT prophylaxis Full code Long-term prognosis guarded Per cardiology recommendations please see the following and we certainly agree and appreciate their input; Recommendations 1. DC heparin and cardizem drip and start on metoprolol and eliquis 2. TTE 3. Lasix therapy 4. Secondary prevention measures 5. Follow up in our office. 6. Will need referral to nephrology. No ACEi/ARB at this time Comment Review of Relevant I have reviewed the following items chuy (where applicable) has been applied. Medications: Current Medications Medications (Trade) Dose Ordered Sig/Lina Route PRN Reason Start Time Stop Time Status Last Admin Dose Admin Diltiazem HCl (Cardizem Iv Push) 10 mg 1X ONCE IVP 05/01/21 14:30 05/01/21 14:32 DC 05/01/21 14:30 Aspirin (Ecotrin) 325 mg 1X ONCE PO 05/01/21 14:30 05/01/21 14:32 DC 05/01/21 14:30 Diltiazem HCl 125 mg/Sodium Chloride 125 ml @ 5 mls/hr CONT PRN IV PER PROTOCOL 05/01/21 15:45 05/02/21 10:07 DC 05/02/21 05:39 Sodium Chloride 1,000 ml @ 75 mls/hr 1X ONCE IV 05/01/21 15:45 05/02/21 05:04 DC 05/01/21 16:15 Furosemide (Lasix) 20 mg 1X ONCE IVP 05/01/21 16:30 05/01/21 16:31 DC 05/01/21 17:55 Heparin Sodium/ Dextrose 250 ml @ 10 mls/hr CONT PRN IV PER PROTOCOL 05/01/21 17:00 05/02/21 01:19 DC 05/01/21 18:11 Ondansetron HCl (Zofran) 4 mg 1X ONCE IVP 05/01/21 17:15 05/01/21 17:16 DC 05/01/21 17:33 Aspirin (Aspirin Chewable) 81 mg DAILY PO 05/02/21 09:00 05/02/21 08:32 Metoprolol Tartrate (Lopressor) 12.5 mg DAILY PO 05/02/21 09:00 05/02/21 10:07 DC 05/02/21 08:32 Heparin Sodium/ Dextrose 250 ml @ 13.884 mls/ hr CONT PRN IV PER PROTOCOL 05/02/21 01:19 05/02/21 10:07 DC 05/02/21 09:53 Heparin Sodium (Porcine) (Heparin Sodium) 2,900 unit PRN Q6HRS PRN IV FOR UFH LEVEL LESS THAN 0.2 05/02/21 01:30 05/02/21 10:09 DC 05/02/21 01:44 Metoprolol Tartrate (Lopressor) 50 mg BID PO 05/02/21 11:00 05/02/21 10:37 Apixaban (Eliquis) 5 mg BID PO 05/02/21 11:00 05/02/21 10:36 Justifications for Admission Other Justification A. fib RVR ARVIN LOWRY III DO May 02, 2021 11:09
[2021-05-02] MEDS: FUROSEMIDE 40 MG/4 ML VIAL. IVP SCH (12:12)
--- NOTE | 2021-05-02 13:45 | NUR ---
SS following for discharge planning. SS reviewed pt chart and discussed with pt RN. Pt is from home with spouse and is currently on room air. Cardiology and Nephrology consulted. SS will continue to follow for discharge planning.
--- NOTE | 2021-05-02 16:59 | CARD ---
MR#: [id number] Date of Study: 05/02/2021 Ordering Physician: CARMELA FABIAN, Referring Physician: CARMELA FABIAN, Tech: Niko Gallardo [facility] APPROVED REPORT EXAM: Two-dimensional and M-mode echocardiogram with Doppler and color Doppler. Other Information Quality : AverageHR: 73bpm Rhythm : NSR INDICATION Atrial Fibrillation RISK FACTORS Hypertension Obesity Hyperlipidemia 2D DIMENSIONS Left Atrium(2D)5.3 (1.6-4.0cm)IVSd1.0 (0.7-1.1cm) Aortic Root(2D)3.8 (2.0-3.7cm)LVDd5.3 (3.9-5.9cm) LVOT Diameter2.1 (1.8-2.4cm)PWd1.0 (0.7-1.1cm) LA [id number] (18-58mL)LVDs5.1 (2.5-4.0cm) FS (%) 3.8 %SV11.7 ml Tricuspid Valve TR P. [id number]/sTR Peak Gr.11mmHg LEFT VENTRICLE The Left Ventricle is borderline dilated. There is normal left ventricular wall thickness. The systol ic function is severely impaired. The Ejection Fraction is estimated at 20%. There is severe global h ypokinesis of the left ventricle. Diastolic function not assessed due to atrial fibrillation. No left ventricle thrombus noted on this study. There is no ventricular septal defect visualized. There is n o left ventricular aneurysm. There is no mass noted in the left ventricle. RIGHT VENTRICLE The right ventricle is mildly dilated. There is normal right ventricular wall thickness. Systolic fun ction is mildly reduced. ATRIA The left atrium is mildly dilated. The right atrium is mildly dilated. The interatrial septum is inta ct with no evidence for an atrial septal defect or patent foramen ovale as noted on 2-D or Doppler im aging. AORTIC VALVE The aortic valve is calcified but opens well. Doppler and Color Flow revealed trace to mild aortic re gurgitation. There is no significant aortic valvular stenosis. There is no aortic valvular vegetation . MITRAL VALVE The mitral valve is thickened but opens well. There is no evidence of mitral valve prolapse. There is no mitral valve stenosis. Doppler and Color-flow revealed moderate mitral regurgitation. TRICUSPID VALVE Doppler and Color Flow revealed mild tricuspid regurgitation. PULMONIC VALVE The pulmonary valve is normal in structure and function. Doppler and Color Flow revealed no pulmonic valvular regurgitation. There is no pulmonic valvular stenosis. GREAT VESSELS The aortic root is normal in size. The ascending aorta is normal in size. The pulmonary artery is nor mal. The IVC is dilated with blunted inspiratory response. PERICARDIAL EFFUSION There is no pleural effusion. There is no evidence of significant pericardial effusion. Critical Notification Critical Value: No <Conclusion> The Left Ventricle is borderline dilated. The systolic function is severely impaired. The Ejection Fraction is estimated at 20%. There is severe global hypokinesis of the left ventricle. Doppler and Color Flow revealed trace to mild aortic regurgitation. There is no significant aortic valvular stenosis. Doppler and Color-flow revealed moderate mitral regurgitation. Doppler and Color Flow revealed mild tricuspid regurgitation. Signed by : Lucas Scott MD Electronically Approved : 05/02/2021 16:58:34
[2021-05-02] MEDS ORDERED: FUROSEMIDE 40 MG/4 ML VIAL. IVP ONE (17:00)
[2021-05-02] MEDS: MILRINONE 20MG/100ML PREMIX 100 ML IV PRN (18:14)
[2021-05-02] MEDS: ATORVASTATIN CALCIUM 40 MG TABLET. PO SCH (20:04)
[2021-05-03] VITALS (21 sets, daily range): BP systolic 94–150; BP diastolic 52–95
[2021-05-03] MEDS: ZOLPIDEM 5 MG TABLET. PO PRN ×2 (00:08→22:38)
[2021-05-03] MEDS: METOPROLOL TART IMMED RELEASE 50 MG TABLET. PO SCH ×3 (00:19→22:39)
[2021-05-03 04:36] LABS: BASO % 0 % (0-3); EOS % 0 % (0-3); HEMATOCRIT 39.5 % (39.0-53.0); HEMOGLOBIN 12.4 g/dL (13.0-17.5); LYMPH # 1.1 x10^3/uL (1.0-4.8); LYMPH % 11 % (24-48); MEAN CORPUSCULAR HEMOGLOBIN 25 pg (25-35); MEAN CORPUSCULAR HGB CONC 32 g/dL (31-37); MEAN CORPUSCULAR VOLUME 80 fL (79-100); MONO # 0.9 x10^3/uL (0.0-1.1); MONO % 9 % (0-9); NEUT # 7.5 x10^3/uL (1.8-7.7); NEUT % 79 % (31-73); PLATELET COUNT 177 x10^3/uL (140-400); RED BLOOD COUNT 4.92 x10^6/uL (4.30-5.70); RED CELL DISTRIBUTION WIDTH 16.3 % (11.5-14.5); WHITE BLOOD COUNT 9.5 x10^3/uL (4.0-11.0)
[2021-05-03 05:01] LABS: CALCIUM 8.8 mg/dL (8.5-10.1); GFR 21.5; MAGNESIUM 2.6 mg/dL (1.8-2.4); POTASSIUM 4.9 mmol/L (3.5-5.1)
[2021-05-03] MEDS: MILRINONE 20MG/100ML PREMIX 100 ML IV PRN (05:57)
[2021-05-03] MEDS: INSULIN LISPRO 300 UNITS/3 ML VIAL. SQ SCH ×3 (08:00→17:03)
[2021-05-03] MEDS: FUROSEMIDE 40 MG/4 ML VIAL. IVP SCH ×2 (08:01→13:33)
[2021-05-03] MEDS: APIXABAN 5 MG TABLET. PO SCH ×2 (08:02→20:02)
[2021-05-03] MEDS: ASPIRIN CHEWABLE 81 MG TABLET. PO SCH (08:02)
--- NOTE | 2021-05-03 11:00 | PDOC2 ---
CONSULT Date of Consult Date of Consult DATE: 05/03/21 TIME: 10:49 Reason for Consult Reason for Consult: RENAL FAILURE Referring Physician Referring Physician: RUI Identification/Chief Complaint Chief Complaint SOB Source Source: Chart review, Patient History of Present Illness Reason for Visit: THIS IS A 61 YR OLD WITH SOB AND PROGRESSIVE LE EDEMA OVER THE LAST 4 WEEKS. HE IS UNDERGOING EVALUATION BY CARDIOLOGY. HE HAS PND AND ORTHOPNEA WELL. EF HERE NOTED TO BE 20%. HE IS ON LASIX. ALSO NOTED TO HAVE AFIB RVR. SOME HYPOTENSION NOTED. HAS HAD HEPARIN AND CARDIZEM GTT. IMAGING C/W CHF. CR OF 2.5 ON ADMIT AND NOW 3.0. HAS HAD CKD STAGE 3B IN 2017 WITH CR OF 1.5 AT BASELINE B [facility] NEVER FOLLOWED UP WITH NEPHROLOGY AFTER THAT VISIT. 4 YEARS AGO HE DEVELOPED KIDNEY STONES AND NEEDED SURGICAL REMOVAL AT [facility]. PER PT HE ALSO PASSED A STONE FEW WEEKS AGO. HAS HAD OCC HEMATURIA RELATED TO STONE PASSAGE. UA HER NOTABLE FOR HEMATURIA WELL. CKD DUE TO DM II AND HTN RELATED END ORGAN DAMAGE 6 Past Medical History Cardiovascular: AFIB, CAD, HTN, CT, Hyperlipidemia Pulmonary: Other (covid-19 01/2020) CENTRAL NERVOUS SYSTEM: Other (No pertinent history) Renal/: Chronic renal insuff, Other (KIDNEY STONES) Endocrine: Diabetes Past Surgical History Past Surgical History: CABG ((FENG to LAD, SVG to OM and SVG to PDA on 06/30/2014 at [facility])) Family History Family History: Coronary Artery Disease (mother) Social History No ALCOHOL: rare Drugs: None Lives: with Family Current Problem List Problem List Problems Medical Problems: (1) Acute kidney injury Status: Acute (2) Anasarca Status: Acute (3) Atrial fibrillation with rapid ventricular response Status: Acute (4) Congestive heart failure Status: Acute Current Medications Current Medications Current Medications Diltiazem HCl (Cardizem Iv Push) 10 mg 1X ONCE IVP Last administered on 05/01/21at 14:30; Start 05/01/21 at 14:30; Stop 05/01/21 at 14:32; Status DC Aspirin (Ecotrin) 325 mg 1X ONCE PO Last administered on 05/01/21at 14:30; Start 05/01/21 at 14:30; Stop 05/01/21 at 14:32; Status DC Lorazepam (Ativan Inj) 2 mg 1X ONCE IVP ; Start 05/01/21 at 15:30; Stop 05/01/21 at 15:43; Status DC Diltiazem HCl 125 mg/Sodium Chloride 125 ml @ 5 mls/hr CONT PRN IV PER PROTOCOL Last administered on 05/02/21at 05:39; Start 05/01/21 at 15:45; Stop 05/02/21 at 10:07; Status DC Sodium Chloride 1,000 ml @ 75 mls/hr 1X ONCE IV Last administered on 05/01/21at 16:15; Start 05/01/21 at 15:45; Stop 05/02/21 at 05:04; Status DC Furosemide (Lasix) 20 mg 1X ONCE IVP Last administered on 05/01/21at 17:55; Start 05/01/21 at 16:30; Stop 05/01/21 at 16:31; Status DC Heparin Sodium/ Dextrose 250 ml @ 10 mls/hr CONT PRN IV PER PROTOCOL Last administered on 05/01/21at 18:11; Start 05/01/21 at 17:00; Stop 05/02/21 at 01:19; Status DC Heparin Sodium (Porcine) (Heparin Sodium) 2,600 unit PRN Q6HRS PRN IV FOR UFH LEVEL LESS THAN 0.2; Start 05/01/21 at 17:00; Stop 05/02/21 at 01:19; Status DC Ondansetron HCl (Zofran) 4 mg 1X ONCE IVP Last administered on 05/01/21at 17:33; Start 05/01/21 at 17:15; Stop 05/01/21 at 17:16; Status DC Sennosides (Senna) 17.2 mg PRN BID PRN PO CONSTIPATION; Start 05/01/21 at 19:45; Status Cancel Docusate Sodium (Colace) 100 mg PRN DAILY PRN PO HARD STOOLS; Start 05/01/21 at 19:45; Status Cancel Ondansetron HCl (Zofran) 4 mg PRN Q6HRS PRN IVP NAUSEA/VOMITING, 1st CHOICE; Start 05/01/21 at 19:45; Status Cancel Dextrose (Dextrose 50%-Water Syringe) 12.5 gm PRN Q15MIN PRN IV SEE COMMENTS; Start 05/01/21 at 19:45 Acetaminophen (Tylenol) 650 mg PRN Q4HRS PRN PO TEMP OVER 100.4F OR MILD PAIN; Start 05/01/21 at 19:45; Status Cancel Lorazepam (Ativan) 0.5 mg PRN Q6HRS PRN PO ANXIETY / AGITATION; Start 05/01/21 at 19:45; Status Cancel Lorazepam (Ativan Inj) 0.25 mg PRN Q4HRS PRN IV ANXIETY / AGITATION; Start 05/01/21 at 19:45; Status Cancel Prochlorperazine Edisylate (Compazine) 10 mg PRN Q6HRS PRN IV NAUSEA/VOMITING, 2nd CHOICE; Start 05/01/21 at 19:45; Status Cancel Diphenhydramine HCl (Benadryl) 25 mg PRN Q6HRS PRN IVP ITCHING; Start 05/01/21 at 19:45; Status Cancel Diphenhydramine HCl (Benadryl) 25 mg PRN Q6HRS PRN PO ITCHING; Start 05/01/21 at 19:45; Status Cancel Diphenhydramine HCl (Benadryl) 25 mg PRN QHS PRN PO INSOMNIA, 1st CHOICE; Start 05/01/21 at 19:45; Status Cancel Zolpidem Tartrate (Ambien) 2.5 mg PRN QHS PRN PO INSOMNIA, 2nd CHOICE; Start 05/01/21 at 19:45; Status Cancel Insulin Human Lispro (HumaLOG) 0-7 UNITS TIDWMEALS SQ ; Start 05/02/21 at 08:00 Dextrose (Dextrose 50%-Water Syringe) 12.5 gm PRN Q15MIN PRN IV SEE COMMENTS; Start 05/01/21 at 21:30; Status UNV Dextrose (Dextrose 50%-Water Syringe) 12.5 gm PRN Q15MIN PRN IV SEE COMMENTS; Start 05/01/21 at 23:15; Status UNV Dextrose (Iv Dextrose 5%) 250 ml PRN Q15MIN PRN IV SEE COMMENTS Last administered on 05/02/21at 16:41; Start 05/01/21 at 23:15 Aspirin (Aspirin Chewable) 81 mg DAILY PO Last administered on 05/03/21at 08:02; Start 05/02/21 at 09:00 Atorvastatin Calcium (Lipitor) 80 mg HS PO Last administered on 05/02/21at 20:04; Start 05/02/21 at 21:00 Metoprolol Tartrate (Lopressor) 12.5 mg DAILY PO Last administered on 05/02/21at 08:32; Start 05/02/21 at 09:00; Stop 05/02/21 at 10:07; Status DC Heparin Sodium/ Dextrose 250 ml @ 13.884 mls/ hr CONT PRN IV PER PROTOCOL Last administered on 05/02/21at 09:53; Start 05/02/21 at 01:19; Stop 05/02/21 at 10:07; Status DC Heparin Sodium (Porcine) (Heparin Sodium) 2,900 unit PRN Q6HRS PRN IV FOR UFH LEVEL LESS THAN 0.2 Last administered on 05/02/21at 01:44; Start 05/02/21 at 01:30; Stop 05/02/21 at 10:09; Status DC Metoprolol Tartrate (Lopressor) 50 mg BID PO Last administered on 05/03/21 08:01; Start 05/02/21 at 11:00 Furosemide (Lasix) 40 mg BID92 IVP Last administered on 05/03/21 08:01; Start 05/02/21 at 12:30 Apixaban (Eliquis) 5 mg BID PO Last administered on 05/03/21 08:02; Start 05/02/21 at 11:00 Zolpidem Tartrate (Ambien) 5 mg PRN QHS PRN PO INSOMNIA, MAY REPEAT IN 1HR Last administered on 05/03/21at 00:08; Start 05/02/21 at 11:45 Oxycodone/ Acetaminophen (Percocet 5/325) 1 tab PRN Q6HRS PRN PO PAIN; Start 05/02/21 at 11:45 Furosemide (Lasix) 40 mg 1X ONCE IVP ; Start 05/02/21 at 17:00; Stop 05/02/21 at 17:01; Status DC Milrinone Lactate/ Dextrose 100 ml @ 4.34 mls/hr CONT PRN IV SEE I/O RECORD Last administered on 05/03/21at 05:57; Start 05/02/21 at 17:45 Active Scripts Active Reported Trulicity (Dulaglutide) 1.5 Mg/0.5 Ml Pen.injctr 1.5 Mg SQ WEEKLY TRULICITY 1.5MG ONCE WEEKLY ON THURSDAY Metoprolol Tartrate 25 Mg Tablet 25 Mg PO ESTUARDO METOPROLOL 25MG PO, TAKE / TAB BY MOUTH DAILY Tradjenta (Linagliptin) 5 Mg Tablet 5 Mg PO DAILY Atorvastatin Calcium 40 Mg Tablet 80 Mg PO HS Zetia (Ezetimibe) 10 Mg Tablet 10 Mg PO DAILY Aspirin 81 Mg Tab.chew 81 Mg PO DAILY Lantus Solostar (Insulin Glargine,Hum.rec.anlog) 100 Unit/1 Ml Insuln.pen 30 Unit SQ QHS Allergies Allergies: Coded Allergies: Penicillins (Verified Allergy, Intermediate, hives, 01/27/20) ROS General: YES: Fatigue, Appetite PSYCHOLOGICAL ROS: YES: Anxiety, Depression Eyes: Yes Decreased vision ALLERGY AND IMMUNOLOGY: YES: Seasonal Allergies Respiratory: YES: Cough, Orthopnea, Shortness of breath, SOB with excertion Cardiovascular: yes Orthopnea, yes Edema Gastrointestinal: Yes Constipation Genitourinary: YES Frequency, YES Hematuria Musculoskeletal: Yes Muscular Weakness Neurological: Yes Weakness Skin: Yes Dry Skin Physical Exam General: Alert, Oriented X3, Cooperative, mild distress HEENT: Atraumatic, PERRLA, EOMI, Mucous membr. moist/pink Lungs: Other (DECREASED AT BASES WITH RALES) Heart: Regular rate Abdomen: Normal bowel sounds, Soft, No tenderness Extremities: No clubbing, Other (3+ EDEMA) Skin: No rashes, No breakdown Neuro: Normal speech Psych/Mental Status: Mental status NL, Mood NL MUSCULOSKELETAL: No joint tenderness, No deformity Vitals VITALS Vital Signs Date Time Temp Pulse Resp B/P (MAP) Pulse Ox O2 Delivery O2 Flow Rate FiO2 05/03/21 10:21 96.8 102 18 126/66 (86) 92 Room Air 96.8 Labs Labs Laboratory Tests Test 05/01/21 15:50 05/01/21 19:05 05/01/21 19:20 05/01/21 21:50 White Blood Count 9.6 x10^3/uL (4.0-11.0) Red Blood Count 5.26 x10^6/uL (4.30-5.70) Hemoglobin 13.6 g/dL (13.0-17.5) Hematocrit 42.0 % (39.0-53.0) Mean Corpuscular Volume 80 fL (79-100) Mean Corpuscular Hemoglobin 26 pg (25-35) Mean Corpuscular Hemoglobin Concent 32 g/dL (31-37) Red Cell Distribution Width 16.0 % (11.5-14.5) Platelet Count 196 x10^3/uL (140-400) Neutrophils (%) (Auto) 85 % (31-73) Lymphocytes (%) (Auto) 9 % (24-48) Monocytes (%) (Auto) 5 % (0-9) Eosinophils (%) (Auto) 1 % (0-3) Basophils (%) (Auto) 1 % (0-3) Neutrophils # (Auto) 8.2 x10^3/uL (1.8-7.7) Lymphocytes # (Auto) 0.8 x10^3/uL (1.0-4.8) Monocytes # (Auto) 0.5 x10^3/uL (0.0-1.1) Eosinophils # (Auto) 0.1 x10^3/uL (0.0-0.7) Basophils # (Auto) 0.0 x10^3/uL (0.0-0.2) Prothrombin Time 16.2 SEC (11.7-14.0) Prothromb Time International Ratio 1.3 (0.8-1.1) Activated Partial Thromboplast Time 29 SEC (24-38) Sodium Level 142 mmol/L (136-145) Potassium Level 4.2 mmol/L (3.5-5.1) Chloride Level 101 mmol/L (98-107) Carbon Dioxide Level 27 mmol/L (21-32) Anion Gap 14 (6-14) Blood Urea Nitrogen 50 mg/dL (8-26) Creatinine 2.4 mg/dL (0.7-1.3) Estimated GFR (Cockcroft-Gault) 27.8 BUN/Creatinine Ratio 21 (6-20) Glucose Level 126 mg/dL (70-99) Calcium Level 8.5 mg/dL (8.5-10.1) Magnesium Level 2.6 mg/dL (1.8-2.4) Total Bilirubin 1.2 mg/dL (0.2-1.0) Aspartate Amino Transf (AST/SGOT) 36 U/L (15-37) Alanine Aminotransferase (ALT/SGPT) 59 U/L (16-63) Alkaline Phosphatase 39 U/L (46-116) Troponin I High Sensitivity 72 ng/L (4-75) 72 ng/L (4-75) PL-Mub-A-Type Natriuretic Peptide 62703 pg/mL (0-124) Total Protein 6.9 g/dL (6.4-8.2) Albumin 4.0 g/dL (3.4-5.0) Albumin/Globulin Ratio 1.4 (1.0-1.7) Thyroid Stimulating Hormone (TSH) 3.784 uIU/mL (0.358-3.74) Urine Collection Type Unknown Urine Color Brown Urine Clarity Cloudy Urine pH 5.5 (<5.0-8.0) Urine Specific Plaza 1.025 (1.000-1.030) Urine Protein 100 mg/dL (NEG-TRACE) Urine Glucose (UA) Negative mg/dL (NEG) Urine Ketones (Stick) Negative mg/dL (NEG) Urine Blood Large (NEG) Urine Nitrite Negative (NEG) Urine Bilirubin Small (NEG) Urine Urobilinogen Dipstick 1.0 mg/dL (0.2 mg/dL) Urine Leukocyte Esterase Negative (NEG) Urine RBC Field obscured /HPF (0-2) Urine WBC 5-10 /HPF (0-4) Urine Squamous Epithelial Cells Occ /LPF Urine Bacteria 0 /HPF (0-FEW) Urine Hyaline Casts Moderate /HPF Urine Mucus Mod /LPF Glucose (Fingerstick) 50 mg/dL (70-99) Test 05/01/21 22:00 05/01/21 22:45 05/01/21 23:06 05/02/21 00:40 Troponin I High Sensitivity 76 ng/L (4-75) Glucose (Fingerstick) 56 mg/dL (70-99) 95 mg/dL (70-99) Heparin Anti-Xa Act, Unfractionated < 0.10 IU/mL (0.30-0.70) Test 05/02/21 00:44 05/02/21 06:10 05/02/21 07:10 05/02/21 11:04 Glucose (Fingerstick) 180 mg/dL (70-99) 92 mg/dL (70-99) 134 mg/dL (70-99) White Blood Count 11.5 x10^3/uL (4.0-11.0) Red Blood Count 5.15 x10^6/uL (4.30-5.70) Hemoglobin 12.9 g/dL (13.0-17.5) Hematocrit 41.8 % (39.0-53.0) Mean Corpuscular Volume 81 fL (79-100) Mean Corpuscular Hemoglobin 25 pg (25-35) Mean Corpuscular Hemoglobin Concent 31 g/dL (31-37) Red Cell Distribution Width 16.5 % (11.5-14.5) Platelet Count 197 x10^3/uL (140-400) Neutrophils (%) (Auto) 77 % (31-73) Lymphocytes (%) (Auto) 13 % (24-48) Monocytes (%) (Auto) 8 % (0-9) Eosinophils (%) (Auto) 1 % (0-3) Basophils (%) (Auto) 1 % (0-3) Neutrophils # (Auto) 8.9 x10^3/uL (1.8-7.7) Lymphocytes # (Auto) 1.5 x10^3/uL (1.0-4.8) Monocytes # (Auto) 0.9 x10^3/uL (0.0-1.1) Eosinophils # (Auto) 0.1 x10^3/uL (0.0-0.7) Basophils # (Auto) 0.1 x10^3/uL (0.0-0.2) Heparin Anti-Xa Act, Unfractionated 0.34 IU/mL (0.30-0.70) Sodium Level 139 mmol/L (136-145) Potassium Level 4.8 mmol/L (3.5-5.1) Chloride Level 103 mmol/L (98-107) Carbon Dioxide Level 21 mmol/L (21-32) Anion Gap 15 (6-14) Blood Urea Nitrogen 51 mg/dL (8-26) Creatinine 2.5 mg/dL (0.7-1.3) Estimated GFR (Cockcroft-Gault) 26.5 Glucose Level 101 mg/dL (70-99) Calcium Level 8.4 mg/dL (8.5-10.1) Phosphorus Level 5.2 mg/dL (2.6-4.7) Magnesium Level 2.6 mg/dL (1.8-2.4) Test 05/02/21 16:27 05/02/21 17:09 05/02/21 20:25 05/03/21 04:00 Glucose (Fingerstick) 54 mg/dL (70-99) 78 mg/dL (70-99) 123 mg/dL (70-99) White Blood Count 9.5 x10^3/uL (4.0-11.0) Red Blood Count 4.92 x10^6/uL (4.30-5.70) Hemoglobin 12.4 g/dL (13.0-17.5) Hematocrit 39.5 % (39.0-53.0) Mean Corpuscular Volume 80 fL (79-100) Mean Corpuscular Hemoglobin 25 pg (25-35) Mean Corpuscular Hemoglobin Concent 32 g/dL (31-37) Red Cell Distribution Width 16.3 % (11.5-14.5) Platelet Count 177 x10^3/uL (140-400) Neutrophils (%) (Auto) 79 % (31-73) Lymphocytes (%) (Auto) 11 % (24-48) Monocytes (%) (Auto) 9 % (0-9) Eosinophils (%) (Auto) 0 % (0-3) Basophils (%) (Auto) 0 % (0-3) Neutrophils # (Auto) 7.5 x10^3/uL (1.8-7.7) Lymphocytes # (Auto) 1.1 x10^3/uL (1.0-4.8) Monocytes # (Auto) 0.9 x10^3/uL (0.0-1.1) Eosinophils # (Auto) 0.0 x10^3/uL (0.0-0.7) Basophils # (Auto) 0.0 x10^3/uL (0.0-0.2) Sodium Level 138 mmol/L (136-145) Potassium Level 4.9 mmol/L (3.5-5.1) Chloride Level 101 mmol/L (98-107) Carbon Dioxide Level 24 mmol/L (21-32) Anion Gap 13 (6-14) Blood Urea Nitrogen 59 mg/dL (8-26) Creatinine 3.0 mg/dL (0.7-1.3) Estimated GFR (Cockcroft-Gault) 21.5 Glucose Level 89 mg/dL (70-99) Calcium Level 8.8 mg/dL (8.5-10.1) Magnesium Level 2.6 mg/dL (1.8-2.4) Test 05/03/21 07:18 05/03/21 10:18 Glucose (Fingerstick) 83 mg/dL (70-99) 184 mg/dL (70-99) Laboratory Tests Test 05/02/21 11:04 05/02/21 16:27 05/02/21 17:09 05/02/21 20:25 Glucose (Fingerstick) 134 mg/dL (70-99) 54 mg/dL (70-99) 78 mg/dL (70-99) 123 mg/dL (70-99) Test 05/03/21 04:00 05/03/21 07:18 05/03/21 10:18 White Blood Count 9.5 x10^3/uL (4.0-11.0) Red Blood Count 4.92 x10^6/uL (4.30-5.70) Hemoglobin 12.4 g/dL (13.0-17.5) Hematocrit 39.5 % (39.0-53.0) Mean Corpuscular Volume 80 fL (79-100) Mean Corpuscular Hemoglobin 25 pg (25-35) Mean Corpuscular Hemoglobin Concent 32 g/dL (31-37) Red Cell Distribution Width 16.3 % (11.5-14.5) Platelet Count 177 x10^3/uL (140-400) Neutrophils (%) (Auto) 79 % (31-73) Lymphocytes (%) (Auto) 11 % (24-48) Monocytes (%) (Auto) 9 % (0-9) Eosinophils (%) (Auto) 0 % (0-3) Basophils (%) (Auto) 0 % (0-3) Neutrophils # (Auto) 7.5 x10^3/uL (1.8-7.7) Lymphocytes # (Auto) 1.1 x10^3/uL (1.0-4.8) Monocytes # (Auto) 0.9 x10^3/uL (0.0-1.1) Eosinophils # (Auto) 0.0 x10^3/uL (0.0-0.7) Basophils # (Auto) 0.0 x10^3/uL (0.0-0.2) Sodium Level 138 mmol/L (136-145) Potassium Level 4.9 mmol/L (3.5-5.1) Chloride Level 101 mmol/L (98-107) Carbon Dioxide Level 24 mmol/L (21-32) Anion Gap 13 (6-14) Blood Urea Nitrogen 59 mg/dL (8-26) Creatinine 3.0 mg/dL (0.7-1.3) Estimated GFR (Cockcroft-Gault) 21.5 Glucose Level 89 mg/dL (70-99) Calcium Level 8.8 mg/dL (8.5-10.1) Magnesium Level 2.6 mg/dL (1.8-2.4) Glucose (Fingerstick) 83 mg/dL (70-99) 184 mg/dL (70-99) Images Images PATIENT: SHONDA PLUMMER DACCOUNT: [id number] : 1960 LOCATION: ER AGE: 61 SEX: M EXAM STATUS: REG ER ORD. PHYSICIAN: ANDRE TORRES DO REASON: dyspnea PROCEDURE: PORTABLE CHEST 1V AP chest. HISTORY: Dyspnea AP view was taken of the chest. Heart is enlarged. There is no definite effusio n. There is mild vascular congestion. There are no confluent infiltrates. IMPRESSION: 1. Cardiomegaly with mild vascular congestion. Electronically signed by: Teja Mathis MD (05/01/2021 3:17 PM) [facility] Assessment/Plan Assessment/Plan IMP SOPHIE WITH CR OF 3.0 CKD STAGE 3B IN 2017 WITH CR OF 1.5-SUSPECT STAGE 4 TO NEAR ESRD NOW ACUTE ON CHRONIC SYSTOLIC CHF CM WITH EF OF 20% AFIB RVT HX DM II HTN HX HEMATURIA NEPHROCALCINOSIS PLAN RENAL SONOGRAM CONT WITH IV LASIT IONOTROPES AND NEG CHRONOTROPES MAY NEED DIALYSIS IF RENAL FUNCTION DOES NOT IMPROVE STRICT I/O AND FLUID RESTRICT LABS IN AM CARDIOLOGY EVAL WILL FOLLOW SANDI MCDONALD MD May 03, 2021 11:00
--- NOTE | 2021-05-03 11:40 | PDOC ---
[employer] PROGRESS NOTE Date of Service DOS: DATE: 05/03/21 TIME: 11:39 Chief Complaint Chief Complaint Acute on chronic systolic congestive heart failure Edema A. fib SOPHIE ATN Overweight History of CAD History of CKD History of bypass surgery History of Present Illness History of Present Illness 05/03/2021 Patient seen and examined He was placed on a milrinone drip this morning Also getting IV Lasix Chart reviewed Discussed with RN Discussed with case management 05/02/2021 Patient seen and examined Discussed with RN Chart reviewed He is up in the chair has a lot of edema on his lower extremities States he is still nauseated and weak Vitals/I&O Vitals/I&O: Vital Signs Date Time Temp Pulse Resp B/P (MAP) Pulse Ox O2 Delivery O2 Flow Rate FiO2 05/03/21 10:21 96.8 102 18 126/66 (86) 92 Room Air 96.8 I & O 05/02/21 05/02/21 05/03/21 15:00 23:00 07:00 Intake Total 160 ml 51.6 ml Output Total 300 ml 100 ml 300 ml Balance -300 ml 60 ml -248.4 ml Physical Exam General: Alert, Oriented X3, Cooperative, mild distress Heart: Regular rate Lungs: Crackles Abdomen: Normal bowel sounds, Soft, No tenderness Extremities: No clubbing, Other (3+ EDEMA) Skin: No rashes, No breakdown Labs Labs: Laboratory Tests Test 05/02/21 16:27 05/02/21 17:09 05/02/21 20:25 05/03/21 04:00 Glucose (Fingerstick) 54 mg/dL (70-99) 78 mg/dL (70-99) 123 mg/dL (70-99) White Blood Count 9.5 x10^3/uL (4.0-11.0) Red Blood Count 4.92 x10^6/uL (4.30-5.70) Hemoglobin 12.4 g/dL (13.0-17.5) Hematocrit 39.5 % (39.0-53.0) Mean Corpuscular Volume 80 fL (79-100) Mean Corpuscular Hemoglobin 25 pg (25-35) Mean Corpuscular Hemoglobin Concent 32 g/dL (31-37) Red Cell Distribution Width 16.3 % (11.5-14.5) Platelet Count 177 x10^3/uL (140-400) Neutrophils (%) (Auto) 79 % (31-73) Lymphocytes (%) (Auto) 11 % (24-48) Monocytes (%) (Auto) 9 % (0-9) Eosinophils (%) (Auto) 0 % (0-3) Basophils (%) (Auto) 0 % (0-3) Neutrophils # (Auto) 7.5 x10^3/uL (1.8-7.7) Lymphocytes # (Auto) 1.1 x10^3/uL (1.0-4.8) Monocytes # (Auto) 0.9 x10^3/uL (0.0-1.1) Eosinophils # (Auto) 0.0 x10^3/uL (0.0-0.7) Basophils # (Auto) 0.0 x10^3/uL (0.0-0.2) Sodium Level 138 mmol/L (136-145) Potassium Level 4.9 mmol/L (3.5-5.1) Chloride Level 101 mmol/L (98-107) Carbon Dioxide Level 24 mmol/L (21-32) Anion Gap 13 (6-14) Blood Urea Nitrogen 59 mg/dL (8-26) Creatinine 3.0 mg/dL (0.7-1.3) Estimated GFR (Cockcroft-Gault) 21.5 Glucose Level 89 mg/dL (70-99) Calcium Level 8.8 mg/dL (8.5-10.1) Magnesium Level 2.6 mg/dL (1.8-2.4) Test 05/03/21 07:18 05/03/21 10:18 Glucose (Fingerstick) 83 mg/dL (70-99) 184 mg/dL (70-99) Assessment and Plan Assessmemt and Plan Problems Medical Problems: (1) Acute kidney injury Status: Acute (2) Anasarca Status: Acute (3) Atrial fibrillation with rapid ventricular response Status: Acute (4) Congestive heart failure Status: Acute Acute on chronic systolic congestive heart failure Edema A. fib SOPHIE ATN Overweight History of CAD History of CKD History of bypass surgery Plan Milrinone drip Metoprolol Eliquis Cardiac monitoring IV Lasix Appreciate cardiology input I's and O's Avoid nephrotoxin Trend labs PT OT if possible Home meds DVT prophylaxis Full code Long-term prognosis guarded Comment Review of Relevant I have reviewed the following items chuy (where applicable) has been applied. Medications: Current Medications Medications (Trade) Dose Ordered Sig/Lina Route PRN Reason Start Time Stop Time Status Last Admin Dose Admin Atorvastatin Calcium (Lipitor) 80 mg HS PO 05/02/21 21:00 05/02/21 20:04 Furosemide (Lasix) 40 mg [id number] IVP 05/02/21 12:30 05/03/21 08:01 Zolpidem Tartrate (Ambien) 5 mg PRN QHS PRN PO INSOMNIA, MAY REPEAT IN 1HR 05/02/21 11:45 05/03/21 00:08 Milrinone Lactate/ Dextrose 100 ml @ 4.34 mls/hr CONT PRN IV SEE I/O RECORD 05/02/21 17:45 05/03/21 05:57 Justifications for Admission Other Justification A. fib RVR ARVIN LOWRY III DO May 03, 2021 11:40
--- NOTE | 2021-05-03 12:23 | NUR ---
SS following up with discharge planning. SS reviewed pt chart and discussed with pt RN. Pt is currently on room air. Cardiology and Nephrology following. Pt on Milrinone drip and IV Lasix. SS will continue to follow for discharge planning.
[2021-05-03] MEDS: oxyCODONE/APAP 5/325 1 TAB TABLET PO PRN ×2 (15:50→22:38)
--- NOTE | 2021-05-03 16:05 | PDOC ---
KIARA DAWKINS UNDERGROUND REPAIRER 05/03/21 1605: CARDIO Progress Notes Date and Time Date of Service 05/03/2021 Time of Evaluation 1530 Subjective Subjective: No Chest Pain, No shortness of breath, No Palpitations Vitals Vitals Vital Signs Date Time Temp Pulse Resp B/P (MAP) Pulse Ox O2 Delivery O2 Flow Rate FiO2 05/03/21 15:00 108 18 109/83 (92) 92 Room Air 05/03/21 10:21 96.8 96.8 Weight Weight [ ] Input and Output Intake and Output Intake and Output 05/03/21 07:00 Intake Total 211.6 ml Output Total 700 ml Balance -488.4 ml Intake Oral 160 ml IV Total 51.6 ml Output Urine Total 700 ml Laboratory Labs Laboratory Tests Test 05/02/21 16:27 05/02/21 17:09 05/02/21 20:25 05/03/21 04:00 Glucose (Fingerstick) 54 mg/dL (70-99) 78 mg/dL (70-99) 123 mg/dL (70-99) White Blood Count 9.5 x10^3/uL (4.0-11.0) Red Blood Count 4.92 x10^6/uL (4.30-5.70) Hemoglobin 12.4 g/dL (13.0-17.5) Hematocrit 39.5 % (39.0-53.0) Mean Corpuscular Volume 80 fL (79-100) Mean Corpuscular Hemoglobin 25 pg (25-35) Mean Corpuscular Hemoglobin Concent 32 g/dL (31-37) Red Cell Distribution Width 16.3 % (11.5-14.5) Platelet Count 177 x10^3/uL (140-400) Neutrophils (%) (Auto) 79 % (31-73) Lymphocytes (%) (Auto) 11 % (24-48) Monocytes (%) (Auto) 9 % (0-9) Eosinophils (%) (Auto) 0 % (0-3) Basophils (%) (Auto) 0 % (0-3) Neutrophils # (Auto) 7.5 x10^3/uL (1.8-7.7) Lymphocytes # (Auto) 1.1 x10^3/uL (1.0-4.8) Monocytes # (Auto) 0.9 x10^3/uL (0.0-1.1) Eosinophils # (Auto) 0.0 x10^3/uL (0.0-0.7) Basophils # (Auto) 0.0 x10^3/uL (0.0-0.2) Sodium Level 138 mmol/L (136-145) Potassium Level 4.9 mmol/L (3.5-5.1) Chloride Level 101 mmol/L (98-107) Carbon Dioxide Level 24 mmol/L (21-32) Anion Gap 13 (6-14) Blood Urea Nitrogen 59 mg/dL (8-26) Creatinine 3.0 mg/dL (0.7-1.3) Estimated GFR (Cockcroft-Gault) 21.5 Glucose Level 89 mg/dL (70-99) Calcium Level 8.8 mg/dL (8.5-10.1) Magnesium Level 2.6 mg/dL (1.8-2.4) Test 05/03/21 07:18 05/03/21 10:18 Glucose (Fingerstick) 83 mg/dL (70-99) 184 mg/dL (70-99) Microbiology Micro Microbiology 05/01/21 Urine Culture - Final, Complete Physical Exam HEENT: Neck Supple W Full Motion Chest: Symmetric LUNGS: Other (diminished) Heart: irregularly irregular (AFIB ) Abdomen: Other (obese) Extremities: Other (4+ bilateral LE pitting edema) Neurology: alert, oriented, follow commands Assessment Assessment 1. 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 AFIB RVR: known HR 100-120 3. CAD: past CABG 2014, clinically stable 4. HTN 5. HLP 6. DM2 7. Hx of covid-19 01/2020 8. CKD4 9. Possible JOSELUIS 10. Severe cardiomyopathy: EF at 20% Recommendations 1. Metoprolol and eliquis. digoxin IV x1 2. Lasix therapy. Continue milrinone drip 0/125 mcg. Strict I & O 3. Secondary prevention measures 4. Will need RHC and outpt CVN. Ischemic w/u as an outpt 6. Consult nephrology. No ACEi/ARB at this time. Monitor UOP, if no significant improvement may need HD. Justicifation of Admission Dx: Justifications for Admission: Justification of Admission Dx: Yes CHF: Cardiac Arrhythmias KATRAPATI,MARCO ANTONIO S MD 05/03/21 1646: CARDIO Progress Notes Plan Plan The patient was seen and interviewed as well as examined at the bedside. The chart was reviewed. The case was discussed. Agree with the plan of care. KIARA DAWKINS APRN May 03, 2021 16:05 MARCO ANTONIO GRANADOS MD May 03, 2021 16:46
[2021-05-03] MEDS ORDERED: DIGOXIN IV 500 MCG/2 ML AMPUL. IV ONE (16:30)
--- NOTE | 2021-05-03 16:36 | RAD ---
US RENAL BILAT History: Acute kidney injury. Comparison: None. Technique: Sonographic examination of the kidneys and bladder. Findings: Right kidney: 11.1 cm length. No focal lesion, calculi or hydronephrosis. Left kidney: 12.1 cm length. No focal lesion, calculi or hydronephrosis. Bladder: Limited evaluation due to nondistention. No distal ureterectasis. No focal wall abnormality. Aorta/IVC: Visualized portions are unremarkable. Other: Right abdominal ascites identified. Impression: 1. Unremarkable kidneys. 2. Nondistended bladder limits evaluation. 3. Right abdominal ascites. Electronically signed by: Jeremiah Pollack MD (05/03/2021 4:33 PM) [id number]
[2021-05-03] MEDS: ATORVASTATIN CALCIUM 40 MG TABLET. PO SCH (20:02)
[2021-05-04] VITALS (11 sets, daily range): BP systolic 102–156; BP diastolic 62–93
[2021-05-04 05:38] LABS: BASO # 0.1 x10^3/uL (0.0-0.2); BASO % 1 % (0-3); EOS # 0.2 x10^3/uL (0.0-0.7); EOS % 3 % (0-3); HEMATOCRIT 38.1 % (39.0-53.0); HEMOGLOBIN 12.5 g/dL (13.0-17.5); LYMPH # 1.2 x10^3/uL (1.0-4.8); LYMPH % 13 % (24-48); MEAN CORPUSCULAR HEMOGLOBIN 26 pg (25-35); MEAN CORPUSCULAR HGB CONC 33 g/dL (31-37); MEAN CORPUSCULAR VOLUME 80 fL (79-100); MONO # 1.2 x10^3/uL (0.0-1.1); MONO % 13 % (0-9); NEUT # 6.4 x10^3/uL (1.8-7.7); NEUT % 71 % (31-73); PLATELET COUNT 158 x10^3/uL (140-400); RED BLOOD COUNT 4.74 x10^6/uL (4.30-5.70); RED CELL DISTRIBUTION WIDTH 16.3 % (11.5-14.5)
[2021-05-04 06:05] LABS: ALBUMIN 3.3 g/dL (3.4-5.0); ALBUMIN/GLOBULIN RATIO 1.3 (1.0-1.7); CALCIUM 8.4 mg/dL (8.5-10.1); CREATININE 3.1 mg/dL (0.7-1.3); GFR 20.7; POTASSIUM 4.2 mmol/L (3.5-5.1); TOTAL BILIRUBIN 1.3 mg/dL (0.2-1.0); TOTAL PROTEIN 5.8 g/dL (6.4-8.2)
[2021-05-04] MEDS: INSULIN LISPRO 300 UNITS/3 ML VIAL. SQ SCH ×3 (07:33→16:21)
[2021-05-04] MEDS: FUROSEMIDE 40 MG/4 ML VIAL. IVP SCH ×2 (08:28→13:45)
[2021-05-04] MEDS: APIXABAN 5 MG TABLET. PO SCH ×2 (08:28→20:48)
[2021-05-04] MEDS: ASPIRIN CHEWABLE 81 MG TABLET. PO SCH (08:28)
[2021-05-04] MEDS: METOPROLOL TART IMMED RELEASE 50 MG TABLET. PO SCH ×2 (08:28→20:48)
--- NOTE | 2021-05-04 09:42 | PDOC ---
PROGRESS NOTES Date of Service: DATE: 05/04/21 TIME: 09:42 Subjective Subjective c/o generalized weakness Objective Objective Vital Signs Date Time Temp Pulse Resp B/P (MAP) Pulse Ox O2 Delivery O2 Flow Rate FiO2 05/04/21 08:28 85 110/62 05/04/21 08:00 Room Air 3.0 05/04/21 07:00 95.9 16 96 95.9 Intake and Output 05/04/21 07:00 Intake Total 300 ml Output Total 950 ml Balance -650 ml Intake Oral 300 ml Output Urine Total 950 ml Physical Exam Abdomen: Normal bowel sounds, Soft, No tenderness Heart: Regular rate Extremities: No clubbing, Other (2+ EDEMA) General: Alert, Oriented X3, Cooperative HEENT: Atraumatic, PERRLA, EOMI, Mucous membr. moist/pink Lungs: Other (DECREASED AT BASES WITH RALES) MUSCULOSKELETAL: No joint tenderness, No deformity Neuro: Normal speech Psych/Mental Status: Mental status NL, Mood NL Skin: No rashes, No breakdown Assessment Assessment 1. Acute on chronic combined diastolic/systolic CHF: Better compensated 2. AFIB RVR: Rate better controlled 3. CAD: past CABG 2014, clinically stable 4. HTN 5. HLP 6. DM2 7. Hx of covid-19 01/2020 8. CKD4 9. Possible JOSELUIS 10. Severe cardiomyopathy: EF at 20% Recommendations 1. Metoprolol and eliquis. 2. Lasix therapy. Continue milrinone drip 0/125 mcg. Strict I & O 3. Secondary prevention measures 4. Will need RHC and outpt CVN. Ischemic w/u as an outpt 6. Nephrology following, if no significant improvement may need HD. Plan Plan of Care Problems Medical Problems: (1) Acute kidney injury Status: Acute (2) Anasarca Status: Acute (3) Atrial fibrillation with rapid ventricular response Status: Acute (4) Congestive heart failure Status: Acute Comment Review of Relevant I have reviewed the following items chuy (where applicable) has been applied. Labs Laboratory Tests Test 05/03/21 10:18 05/03/21 16:54 05/03/21 20:36 05/04/21 04:00 Glucose (Fingerstick) 184 mg/dL (70-99) 217 mg/dL (70-99) 171 mg/dL (70-99) White Blood Count 9.0 x10^3/uL (4.0-11.0) Red Blood Count 4.74 x10^6/uL (4.30-5.70) Hemoglobin 12.5 g/dL (13.0-17.5) Hematocrit 38.1 % (39.0-53.0) Mean Corpuscular Volume 80 fL (79-100) Mean Corpuscular Hemoglobin 26 pg (25-35) Mean Corpuscular Hemoglobin Concent 33 g/dL (31-37) Red Cell Distribution Width 16.3 % (11.5-14.5) Platelet Count 158 x10^3/uL (140-400) Neutrophils (%) (Auto) 71 % (31-73) Lymphocytes (%) (Auto) 13 % (24-48) Monocytes (%) (Auto) 13 % (0-9) Eosinophils (%) (Auto) 3 % (0-3) Basophils (%) (Auto) 1 % (0-3) Neutrophils # (Auto) 6.4 x10^3/uL (1.8-7.7) Lymphocytes # (Auto) 1.2 x10^3/uL (1.0-4.8) Monocytes # (Auto) 1.2 x10^3/uL (0.0-1.1) Eosinophils # (Auto) 0.2 x10^3/uL (0.0-0.7) Basophils # (Auto) 0.1 x10^3/uL (0.0-0.2) Sodium Level 137 mmol/L (136-145) Potassium Level 4.2 mmol/L (3.5-5.1) Chloride Level 101 mmol/L (98-107) Carbon Dioxide Level 26 mmol/L (21-32) Anion Gap 10 (6-14) Blood Urea Nitrogen 66 mg/dL (8-26) Creatinine 3.1 mg/dL (0.7-1.3) Estimated GFR (Cockcroft-Gault) 20.7 BUN/Creatinine Ratio 21 (6-20) Glucose Level 157 mg/dL (70-99) Calcium Level 8.4 mg/dL (8.5-10.1) Total Bilirubin 1.3 mg/dL (0.2-1.0) Aspartate Amino Transf (AST/SGOT) 163 U/L (15-37) Alanine Aminotransferase (ALT/SGPT) 184 U/L (16-63) Alkaline Phosphatase 45 U/L (46-116) Total Protein 5.8 g/dL (6.4-8.2) Albumin 3.3 g/dL (3.4-5.0) Albumin/Globulin Ratio 1.3 (1.0-1.7) Test 05/04/21 07:17 Glucose (Fingerstick) 122 mg/dL (70-99) Microbiology 05/01/21 Urine Culture - Final, Complete Medications Current Medications Digoxin (Lanoxin) 250 mcg 1X ONCE IV Last administered on 05/03/21at 16:38; Start 05/03/21 at 16:30; Stop 05/03/21 at 16:31; Status DC Vitals/I & O Vital Sign - Last 24 Hours 05/03/21 05/03/21 05/03/21 05/03/21 09:57 10:21 11:57 14:02 Temp 96.8 96.8 Pulse 98 102 106 92 Resp 18 18 18 18 B/P (MAP) 124/74 (91) 126/66 (86) 129/78 (95) 116/84 (95) Pulse Ox 94 92 94 95 O2 Delivery Room Air Room Air Room Air Room Air 05/03/21 05/03/21 05/03/21 05/03/21 15:00 16:02 16:38 17:00 Pulse 108 105 105 88 Resp 18 18 18 B/P (MAP) 109/83 (92) 108/69 (82) 108/69 109/69 (82) Pulse Ox 92 97 94 O2 Delivery Room Air Room Air Room Air 05/03/21 05/03/21 05/03/21 05/03/21 19:17 20:00 21:40 22:38 Temp 97.9 97.9 Pulse 92 98 Resp 18 18 B/P (MAP) 120/52 (74) 116/66 (83) Pulse Ox 96 96 O2 Delivery Room Air Room Air Nasal Cannula O2 Flow Rate 2.0 05/03/21 05/03/21 05/03/21 05/03/21 22:39 22:41 23:06 23:08 Temp 97.1 97.1 Pulse 92 102 63 Resp 16 18 B/P (MAP) 116/66 150/95 (113) 104/71 (82) Pulse Ox 98 98 O2 Delivery Nasal Cannula Nasal Cannula O2 Flow Rate 2.0 2.0 05/03/21 05/04/21 05/04/21 05/04/21 23:40 00:40 02:36 03:13 Temp 96.7 96.7 Pulse 86 88 86 89 Resp 16 B/P (MAP) 97/56 (70) 107/65 (79) 156/69 (98) 115/70 (85) Pulse Ox 96 O2 Delivery Nasal Cannula O2 Flow Rate 2.0 05/04/21 05/04/21 05/04/21 05/04/21 03:45 04:43 07:00 08:00 Temp 95.9 95.9 Pulse 84 84 81 Resp 16 B/P (MAP) 102/76 (85) 129/93 (105) 110/62 (78) Pulse Ox 96 O2 Delivery Nasal Cannula Room Air O2 Flow Rate 3.0 3.0 05/04/21 08:28 Pulse 85 B/P (MAP) 110/62 Intake and Output 05/03/21 05/03/21 05/04/21 15:00 23:00 07:00 Intake Total 0 ml 300 ml Output Total 400 ml 425 ml 125 ml Balance -400 ml -425 ml 175 ml AMADOR DIXON MD May 04, 2021 09:42
[2021-05-04] MEDS: MILRINONE 20MG/100ML PREMIX 100 ML IV PRN (10:38)
--- NOTE | 2021-05-04 12:08 | PDOC ---
Renal-Progress Notes Subjective Notes Notes SOME SOB STILL History of Present Illness Hx of present illness STABLE Vitals Vitals Vital Signs Date Time Temp Pulse Resp B/P (MAP) Pulse Ox O2 Delivery O2 Flow Rate FiO2 05/04/21 11:01 98 116/87 (97) 97 Nasal Cannula 2.0 05/04/21 07:00 95.9 16 95.9 Weight Weight [ ] I.O. Intake and Output Intake and Output 05/04/21 07:00 Intake Total 300 ml Output Total 950 ml Balance -650 ml Intake Oral 300 ml Output Urine Total 950 ml Labs Labs Laboratory Tests Test 05/03/21 16:54 05/03/21 20:36 05/04/21 04:00 05/04/21 07:17 Glucose (Fingerstick) 217 mg/dL (70-99) 171 mg/dL (70-99) 122 mg/dL (70-99) White Blood Count 9.0 x10^3/uL (4.0-11.0) Red Blood Count 4.74 x10^6/uL (4.30-5.70) Hemoglobin 12.5 g/dL (13.0-17.5) Hematocrit 38.1 % (39.0-53.0) Mean Corpuscular Volume 80 fL (79-100) Mean Corpuscular Hemoglobin 26 pg (25-35) Mean Corpuscular Hemoglobin Concent 33 g/dL (31-37) Red Cell Distribution Width 16.3 % (11.5-14.5) Platelet Count 158 x10^3/uL (140-400) Neutrophils (%) (Auto) 71 % (31-73) Lymphocytes (%) (Auto) 13 % (24-48) Monocytes (%) (Auto) 13 % (0-9) Eosinophils (%) (Auto) 3 % (0-3) Basophils (%) (Auto) 1 % (0-3) Neutrophils # (Auto) 6.4 x10^3/uL (1.8-7.7) Lymphocytes # (Auto) 1.2 x10^3/uL (1.0-4.8) Monocytes # (Auto) 1.2 x10^3/uL (0.0-1.1) Eosinophils # (Auto) 0.2 x10^3/uL (0.0-0.7) Basophils # (Auto) 0.1 x10^3/uL (0.0-0.2) Sodium Level 137 mmol/L (136-145) Potassium Level 4.2 mmol/L (3.5-5.1) Chloride Level 101 mmol/L (98-107) Carbon Dioxide Level 26 mmol/L (21-32) Anion Gap 10 (6-14) Blood Urea Nitrogen 66 mg/dL (8-26) Creatinine 3.1 mg/dL (0.7-1.3) Estimated GFR (Cockcroft-Gault) 20.7 BUN/Creatinine Ratio 21 (6-20) Glucose Level 157 mg/dL (70-99) Calcium Level 8.4 mg/dL (8.5-10.1) Magnesium Level 2.3 mg/dL (1.8-2.4) Total Bilirubin 1.3 mg/dL (0.2-1.0) Aspartate Amino Transf (AST/SGOT) 163 U/L (15-37) Alanine Aminotransferase (ALT/SGPT) 184 U/L (16-63) Alkaline Phosphatase 45 U/L (46-116) Total Protein 5.8 g/dL (6.4-8.2) Albumin 3.3 g/dL (3.4-5.0) Albumin/Globulin Ratio 1.3 (1.0-1.7) Test 05/04/21 11:23 Glucose (Fingerstick) 195 mg/dL (70-99) Micro Micro Microbiology 05/01/21 Urine Culture - Final, Complete Review of Systems Constitutional: yes: weakness, alert Eyes: Yes: no symptom reported Pulmonary: Yes dyspnea Cardiovascular: Yes no symptom reported, Yes edema Gastrointestional: Yes: no symptom reported Genitourinary: Yes: no symptom reported Musculoskeletal: Yes: no symptom reported Skin: Yes no symptom reported Psychiatric/Neurological: Yes: no symptom reported Physical Exam General Appearance: no apparent distress Skin: warm Respiratory: decreased breath sounds Heart: S1S2 Abdomen: bowel sounds present Genitourinary: bladder flat Extremities: pulses present, edema Neurology: alert, oriented, follow commands Assessment Assessment IMP SOPHIE WITH CR OF 3.1-POSSIBLE THIS IS HIS NEW BASELINE CKD STAGE 3B IN 2017 WITH CR OF 1.5-SUSPECT STAGE 4 TO NEAR ESRD NOW ACUTE ON CHRONIC SYSTOLIC CHF CM WITH EF OF 20% AFIB RVT HX DM II HTN HX HEMATURIA NEPHROCALCINOSIS PLAN RENAL SONOGRAM NEG FOR ACUTE FINDINGS CONT WITH IV LASIX IONOTROPES AND NEG CHRONOTROPES MAY NEED DIALYSIS IF RENAL FUNCTION DOES NOT IMPROVE STRICT I/O AND FLUID RESTRICT CARDIOLOGY EVAL WILL FOLLOW SANDI MCDONALD MD May 04, 2021 12:08
--- NOTE | 2021-05-04 12:53 | PDOC ---
[facility] [facility] PROGRESS NOTE Date of Service DOS: DATE: 05/04/21 TIME: 12:52 Chief Complaint Chief Complaint Acute on chronic systolic congestive heart failure Edema A. fib SOPHIE ATN Overweight History of CAD History of CKD History of bypass surgery History of Present Illness History of Present Illness 05/04/2021 Patient seen and examined He is still on milrinone drip Discussed with RN Chart reviewed 05/03/2021 Patient seen and examined He was placed on a milrinone drip this morning Also getting IV Lasix Chart reviewed Discussed with RN Discussed with case management 05/02/2021 Patient seen and examined Discussed with RN Chart reviewed He is up in the chair has a lot of edema on his lower extremities States he is still nauseated and weak Vitals/I&O Vitals/I&O: Vital Signs Date Time Temp Pulse Resp B/P (MAP) Pulse Ox O2 Delivery O2 Flow Rate FiO2 05/04/21 12:08 95 126/82 (97) 97 Nasal Cannula 2.0 05/04/21 07:00 95.9 16 95.9 I & O 05/03/21 05/03/21 05/04/21 15:00 23:00 07:00 Intake Total 0 ml 300 ml Output Total 400 ml 425 ml 125 ml Balance -400 ml -425 ml 175 ml Physical Exam General: Alert, Oriented X3, Cooperative, mild distress Heart: Regular rate Lungs: Crackles Abdomen: Normal bowel sounds, Soft, No tenderness Extremities: No clubbing, Other (3+ EDEMA) Skin: No rashes, No breakdown Labs Labs: Laboratory Tests Test 05/03/21 16:54 05/03/21 20:36 05/04/21 04:00 05/04/21 07:17 Glucose (Fingerstick) 217 mg/dL (70-99) 171 mg/dL (70-99) 122 mg/dL (70-99) White Blood Count 9.0 x10^3/uL (4.0-11.0) Red Blood Count 4.74 x10^6/uL (4.30-5.70) Hemoglobin 12.5 g/dL (13.0-17.5) Hematocrit 38.1 % (39.0-53.0) Mean Corpuscular Volume 80 fL (79-100) Mean Corpuscular Hemoglobin 26 pg (25-35) Mean Corpuscular Hemoglobin Concent 33 g/dL (31-37) Red Cell Distribution Width 16.3 % (11.5-14.5) Platelet Count 158 x10^3/uL (140-400) Neutrophils (%) (Auto) 71 % (31-73) Lymphocytes (%) (Auto) 13 % (24-48) Monocytes (%) (Auto) 13 % (0-9) Eosinophils (%) (Auto) 3 % (0-3) Basophils (%) (Auto) 1 % (0-3) Neutrophils # (Auto) 6.4 x10^3/uL (1.8-7.7) Lymphocytes # (Auto) 1.2 x10^3/uL (1.0-4.8) Monocytes # (Auto) 1.2 x10^3/uL (0.0-1.1) Eosinophils # (Auto) 0.2 x10^3/uL (0.0-0.7) Basophils # (Auto) 0.1 x10^3/uL (0.0-0.2) Sodium Level 137 mmol/L (136-145) Potassium Level 4.2 mmol/L (3.5-5.1) Chloride Level 101 mmol/L (98-107) Carbon Dioxide Level 26 mmol/L (21-32) Anion Gap 10 (6-14) Blood Urea Nitrogen 66 mg/dL (8-26) Creatinine 3.1 mg/dL (0.7-1.3) Estimated GFR (Cockcroft-Gault) 20.7 BUN/Creatinine Ratio 21 (6-20) Glucose Level 157 mg/dL (70-99) Calcium Level 8.4 mg/dL (8.5-10.1) Magnesium Level 2.3 mg/dL (1.8-2.4) Total Bilirubin 1.3 mg/dL (0.2-1.0) Aspartate Amino Transf (AST/SGOT) 163 U/L (15-37) Alanine Aminotransferase (ALT/SGPT) 184 U/L (16-63) Alkaline Phosphatase 45 U/L (46-116) Total Protein 5.8 g/dL (6.4-8.2) Albumin 3.3 g/dL (3.4-5.0) Albumin/Globulin Ratio 1.3 (1.0-1.7) Test 05/04/21 11:23 Glucose (Fingerstick) 195 mg/dL (70-99) Assessment and Plan Assessmemt and Plan Problems Medical Problems: (1) Acute kidney injury Status: Acute (2) Anasarca Status: Acute (3) Atrial fibrillation with rapid ventricular response Status: Acute (4) Congestive heart failure Status: Acute Acute on chronic systolic congestive heart failure Edema A. fib SOPHIE ATN Overweight History of CAD History of CKD History of bypass surgery Plan Milrinone drip Metoprolol Eliquis Cardiac monitoring IV Lasix Appreciate cardiology input I's and O's Avoid nephrotoxin Trend labs PT OT if possible Home meds DVT prophylaxis Full code Long-term prognosis guarded Comment Review of Relevant I have reviewed the following items chuy (where applicable) has been applied. Medications: Current Medications Medications (Trade) Dose Ordered Sig/Lina Route PRN Reason Start Time Stop Time Status Last Admin Dose Admin Digoxin (Lanoxin) 250 mcg 1X ONCE IV 05/03/21 16:30 05/03/21 16:31 DC 05/03/21 16:38 Justifications for Admission Other Justification A. fib RVR ARVIN LOWRY III DO May 04, 2021 12:53
[2021-05-04] MEDS: ATORVASTATIN CALCIUM 40 MG TABLET. PO SCH (20:49)
[2021-05-05 02:39] VITALS: BP 102/71
[2021-05-05 05:42] LABS: CALCIUM 8.1 mg/dL (8.5-10.1); CREATININE 2.6 mg/dL (0.7-1.3); GFR 25.3; POTASSIUM 3.9 mmol/L (3.5-5.1)
[2021-05-05 07:00] VITALS: BP 125/73
[2021-05-05] MEDS: ASPIRIN CHEWABLE 81 MG TABLET. PO SCH (08:10)
[2021-05-05] MEDS: METOPROLOL TART IMMED RELEASE 50 MG TABLET. PO SCH ×2 (08:10→20:26)
[2021-05-05] MEDS: FUROSEMIDE 40 MG/4 ML VIAL. IVP SCH ×2 (08:10→13:58)
[2021-05-05] MEDS: APIXABAN 5 MG TABLET. PO SCH ×2 (08:11→20:26)
[2021-05-05] MEDS: INSULIN LISPRO 300 UNITS/3 ML VIAL. SQ SCH ×3 (08:22→17:21)
--- NOTE | 2021-05-05 08:27 | PDOC ---
PROGRESS NOTES Date of Service: DATE: 05/05/21 TIME: 08:27 Subjective Subjective Feeling better with improvement in dyspnea Objective Objective Vital Signs Date Time Temp Pulse Resp B/P (MAP) Pulse Ox O2 Delivery O2 Flow Rate FiO2 05/05/21 08:10 102 125/73 05/05/21 07:00 96.4 18 96 96.4 05/04/21 19:00 2.0 Intake and Output 05/05/21 07:00 Intake Total 650 ml Output Total 3500 ml Balance -2850 ml Intake Oral 650 ml Output Urine Total 3500 ml Physical Exam Abdomen: Normal bowel sounds, Soft, No tenderness Heart: Regular rate Extremities: No clubbing, Other (2+ EDEMA) General: Alert, Oriented X3, Cooperative HEENT: Atraumatic, PERRLA, EOMI, Mucous membr. moist/pink Lungs: Other (DECREASED AT BASES WITH RALES) MUSCULOSKELETAL: No joint tenderness, No deformity Neuro: Normal speech Psych/Mental Status: Mental status NL, Mood NL Skin: No rashes, No breakdown Assessment Assessment 1. Acute on chronic combined diastolic/systolic CHF: Better compensated 2. AFIB RVR: Rate better controlled 3. CAD: past CABG 2014, clinically stable 4. HTN 5. HLP 6. DM2 7. Hx of covid-19 01/2020 8. CKD4 9. Possible JOSELUIS 10. Severe cardiomyopathy: EF at 20% Recommendations 1. Metoprolol and eliquis. 2. Lasix therapy. Continue milrinone drip 0/125 mcg. Strict I & O 3. Secondary prevention measures 4. Will need RHC and outpt CVN. Ischemic w/u as an outpt 6. Nephrology following, if no significant improvement may need HD. Plan Plan of Care Problems Medical Problems: (1) Acute kidney injury Status: Acute (2) Anasarca Status: Acute (3) Atrial fibrillation with rapid ventricular response Status: Acute (4) Congestive heart failure Status: Acute Comment Review of Relevant I have reviewed the following items chuy (where applicable) has been applied. Labs Laboratory Tests Test 05/04/21 11:23 05/04/21 16:08 05/04/21 19:37 05/05/21 03:30 Glucose (Fingerstick) 195 mg/dL (70-99) 208 mg/dL (70-99) 178 mg/dL (70-99) Sodium Level 139 mmol/L (136-145) Potassium Level 3.9 mmol/L (3.5-5.1) Chloride Level 100 mmol/L (98-107) Carbon Dioxide Level 26 mmol/L (21-32) Anion Gap 13 (6-14) Blood Urea Nitrogen 59 mg/dL (8-26) Creatinine 2.6 mg/dL (0.7-1.3) Estimated GFR (Cockcroft-Gault) 25.3 Glucose Level 174 mg/dL (70-99) Calcium Level 8.1 mg/dL (8.5-10.1) Magnesium Level 2.0 mg/dL (1.8-2.4) Test 05/05/21 07:34 Glucose (Fingerstick) 205 mg/dL (70-99) Microbiology 05/01/21 Urine Culture - Final, Complete Vitals/I & O Vital Sign - Last 24 Hours 05/04/21 05/04/21 05/04/21 05/04/21 08:28 11:01 12:08 14:10 Temp 97.0 97.0 Pulse 85 98 95 93 B/P (MAP) 110/62 116/87 (97) 126/82 (97) 130/64 (86) Pulse Ox 97 97 94 O2 Delivery Nasal Cannula Nasal Cannula Nasal Cannula O2 Flow Rate 2.0 2.0 2.0 05/04/21 05/04/21 05/04/21 05/04/21 19:00 20:00 20:48 22:22 Temp 98.0 97.9 98.0 97.9 Pulse 93 104 86 Resp 20 B/P (MAP) 115/78 (90) 115/78 129/78 (95) Pulse Ox 94 94 O2 Delivery Nasal Cannula Room Air Room Air O2 Flow Rate 2.0 05/05/21 05/05/21 05/05/21 02:39 07:00 08:10 Temp 97.8 96.4 97.8 96.4 Pulse 89 102 102 Resp 18 18 B/P (MAP) 102/71 (81) 125/73 (90) 125/73 Pulse Ox 96 96 O2 Delivery Room Air Intake and Output 05/04/21 05/04/21 05/05/21 15:00 23:00 07:00 Intake Total 500 ml 150 ml Output Total 1100 ml 1300 ml 1100 ml Balance -600 ml -1300 ml -950 ml AMADOR DIXON MD May 05, 2021 08:27
[2021-05-05] MEDS: MILRINONE 20MG/100ML PREMIX 100 ML IV PRN (10:18)
[2021-05-05 11:00] VITALS: BP 109/58
--- NOTE | 2021-05-05 11:18 | PDOC ---
Renal-Progress Notes Subjective Notes Notes FEELING BETTER EVERY DAY History of Present Illness Hx of present illness STABLE Vitals Vitals Vital Signs Date Time Temp Pulse Resp B/P (MAP) Pulse Ox O2 Delivery O2 Flow Rate FiO2 05/05/21 11:00 98.2 96 18 109/58 (75) 94 98.2 05/05/21 08:00 Room Air 05/04/21 19:00 2.0 Weight Weight [ ] I.O. Intake and Output Intake and Output 05/05/21 07:00 Intake Total 650 ml Output Total 3500 ml Balance -2850 ml Intake Oral 650 ml Output Urine Total 3500 ml Labs Labs Laboratory Tests Test 05/04/21 11:23 05/04/21 16:08 05/04/21 19:37 05/05/21 03:30 Glucose (Fingerstick) 195 mg/dL (70-99) 208 mg/dL (70-99) 178 mg/dL (70-99) Sodium Level 139 mmol/L (136-145) Potassium Level 3.9 mmol/L (3.5-5.1) Chloride Level 100 mmol/L (98-107) Carbon Dioxide Level 26 mmol/L (21-32) Anion Gap 13 (6-14) Blood Urea Nitrogen 59 mg/dL (8-26) Creatinine 2.6 mg/dL (0.7-1.3) Estimated GFR (Cockcroft-Gault) 25.3 Glucose Level 174 mg/dL (70-99) Calcium Level 8.1 mg/dL (8.5-10.1) Magnesium Level 2.0 mg/dL (1.8-2.4) Test 05/05/21 07:34 05/05/21 11:02 Glucose (Fingerstick) 205 mg/dL (70-99) 173 mg/dL (70-99) Micro Micro Microbiology 05/01/21 Urine Culture - Final, Complete Review of Systems Constitutional: yes: weakness, alert Eyes: Yes: no symptom reported Pulmonary: Yes dyspnea Cardiovascular: Yes no symptom reported, Yes edema Gastrointestional: Yes: no symptom reported Genitourinary: Yes: no symptom reported Musculoskeletal: Yes: no symptom reported Skin: Yes no symptom reported Psychiatric/Neurological: Yes: no symptom reported Physical Exam General Appearance: no apparent distress Skin: warm Respiratory: decreased breath sounds Heart: S1S2 Abdomen: bowel sounds present Genitourinary: bladder flat Extremities: pulses present, edema Neurology: alert, oriented, follow commands Assessment Assessment IMP SOPHIE WITH CR OF 2.6-POSSIBLE THIS IS HIS NEW BASELINE CKD STAGE 3B IN 2017 WITH CR OF 1.5-SUSPECT STAGE 4 TO NEAR ESRD NOW ACUTE ON CHRONIC SYSTOLIC CHF CM WITH EF OF 20% AFIB RVT HX DM II HTN HX HEMATURIA NEPHROCALCINOSIS PLAN RENAL SONOGRAM NEG FOR ACUTE FINDINGS CONT WITH IV LASIX-CHANGE PO TOMORROW IONOTROPES AND NEG CHRONOTROPES MAY NEED DIALYSIS IF RENAL FUNCTION DOES NOT IMPROVE STRICT I/O AND FLUID RESTRICT CARDIOLOGY EVAL WILL FOLLOW SANDI MCDONALD MD May 05, 2021 11:18
--- NOTE | 2021-05-05 12:39 | PDOC ---
[employer] PROGRESS NOTE Date of Service DOS: DATE: 05/05/21 TIME: 12:38 Chief Complaint Chief Complaint Acute on chronic systolic congestive heart failure Edema A. fib SOPHIE ATN Overweight History of CAD History of CKD History of bypass surgery History of Present Illness History of Present Illness 05/05/2021 Patient seen and examined His is present Discussed with RN Chart reviewed He is still on milrinone drip 05/04/2021 Patient seen and examined He is still on milrinone drip Discussed with RN Chart reviewed 05/03/2021 Patient seen and examined He was placed on a milrinone drip this morning Also getting IV Lasix Chart reviewed Discussed with RN Discussed with case management 05/02/2021 Patient seen and examined Discussed with RN Chart reviewed He is up in the chair has a lot of edema on his lower extremities States he is still nauseated and weak Vitals/I&O Vitals/I&O: Vital Signs Date Time Temp Pulse Resp B/P (MAP) Pulse Ox O2 Delivery O2 Flow Rate FiO2 05/05/21 11:00 98.2 96 18 109/58 (75) 94 98.2 05/05/21 08:00 Room Air 05/04/21 19:00 2.0 I & O 05/04/21 05/04/21 05/05/21 15:00 23:00 07:00 Intake Total 500 ml 150 ml Output Total 1100 ml 1300 ml 1100 ml Balance -600 ml -1300 ml -950 ml Physical Exam General: Alert, Oriented X3, Cooperative Heart: Regular rate Lungs: Crackles Abdomen: Normal bowel sounds, Soft, No tenderness Extremities: No clubbing, Other (2+ EDEMA) Skin: No rashes, No breakdown Labs Labs: Laboratory Tests Test 05/04/21 16:08 05/04/21 19:37 05/05/21 03:30 05/05/21 07:34 Glucose (Fingerstick) 208 mg/dL (70-99) 178 mg/dL (70-99) 205 mg/dL (70-99) Sodium Level 139 mmol/L (136-145) Potassium Level 3.9 mmol/L (3.5-5.1) Chloride Level 100 mmol/L (98-107) Carbon Dioxide Level 26 mmol/L (21-32) Anion Gap 13 (6-14) Blood Urea Nitrogen 59 mg/dL (8-26) Creatinine 2.6 mg/dL (0.7-1.3) Estimated GFR (Cockcroft-Gault) 25.3 Glucose Level 174 mg/dL (70-99) Calcium Level 8.1 mg/dL (8.5-10.1) Magnesium Level 2.0 mg/dL (1.8-2.4) Test 05/05/21 11:02 Glucose (Fingerstick) 173 mg/dL (70-99) Assessment and Plan Assessmemt and Plan Problems Medical Problems: (1) Acute kidney injury Status: Acute (2) Anasarca Status: Acute (3) Atrial fibrillation with rapid ventricular response Status: Acute (4) Congestive heart failure Status: Acute Acute on chronic systolic congestive heart failure Edema A. fib SOPHIE ATN Overweight History of CAD History of CKD History of bypass surgery Plan Milrinone drip Metoprolol Eliquis Cardiac monitoring IV Lasix We will consult the wound care team for his oozing lower extremity Appreciate cardiology input I's and O's Avoid nephrotoxin Trend labs PT OT if possible Home meds DVT prophylaxis Full code Long-term prognosis guarded Comment Review of Relevant I have reviewed the following items chuy (where applicable) has been applied. Justifications for Admission Other Justification A. fib RVR ARVIN LOWRY III DO May 05, 2021 12:39
[2021-05-05 14:58] VITALS: BP 119/79
[2021-05-05 18:58] VITALS: BP 125/77
[2021-05-05] MEDS: ATORVASTATIN CALCIUM 40 MG TABLET. PO SCH (20:26)
[2021-05-05 22:02] VITALS: BP 134/100
[2021-05-06 02:41] VITALS: BP 105/77
[2021-05-06 05:49] LABS: CALCIUM 8.6 mg/dL (8.5-10.1); CREATININE 2.3 mg/dL (0.7-1.3); GFR 29.2; MAGNESIUM 1.9 mg/dL (1.8-2.4); PHOSPHORUS 3.7 mg/dL (2.6-4.7); POTASSIUM 3.9 mmol/L (3.5-5.1)
[2021-05-06 07:00] VITALS: BP 131/74
[2021-05-06] MEDS: INSULIN LISPRO 300 UNITS/3 ML VIAL. SQ SCH ×3 (08:00→17:01)
[2021-05-06] MEDS: FUROSEMIDE 40 MG/4 ML VIAL. IVP SCH (08:14)
[2021-05-06] MEDS: APIXABAN 5 MG TABLET. PO SCH ×2 (08:15→21:49)
[2021-05-06] MEDS: METOPROLOL TART IMMED RELEASE 50 MG TABLET. PO SCH ×2 (08:15→21:50)
[2021-05-06] MEDS: ASPIRIN CHEWABLE 81 MG TABLET. PO SCH (08:15)
[2021-05-06 10:18] VITALS: BP 119/78
--- NOTE | 2021-05-06 10:54 | PDOC ---
Renal-Progress Notes Subjective Notes Notes NO SOB History of Present Illness Hx of present illness STABLE Vitals Vitals Vital Signs Date Time Temp Pulse Resp B/P (MAP) Pulse Ox O2 Delivery O2 Flow Rate FiO2 05/06/21 10:18 97.6 94 18 119/78 (92) 93 Room Air 97.6 05/06/21 08:00 2.0 Weight Weight [ ] I.O. Intake and Output Intake and Output 05/06/21 07:00 Intake Total 1020 ml Output Total 4625 ml Balance -3605 ml Intake Oral 1020 ml Output Urine Total 4625 ml # Bowel Movements 1 Labs Labs Laboratory Tests Test 05/05/21 11:02 05/05/21 16:45 05/05/21 19:56 05/06/21 04:00 Glucose (Fingerstick) 173 mg/dL (70-99) 156 mg/dL (70-99) 200 mg/dL (70-99) Sodium Level 140 mmol/L (136-145) Potassium Level 3.9 mmol/L (3.5-5.1) Chloride Level 101 mmol/L (98-107) Carbon Dioxide Level 29 mmol/L (21-32) Anion Gap 10 (6-14) Blood Urea Nitrogen 48 mg/dL (8-26) Creatinine 2.3 mg/dL (0.7-1.3) Estimated GFR (Cockcroft-Gault) 29.2 Glucose Level 169 mg/dL (70-99) Calcium Level 8.6 mg/dL (8.5-10.1) Phosphorus Level 3.7 mg/dL (2.6-4.7) Magnesium Level 1.9 mg/dL (1.8-2.4) Test 05/06/21 07:30 Glucose (Fingerstick) 164 mg/dL (70-99) Micro Micro Microbiology 05/01/21 Urine Culture - Final, Complete Review of Systems Constitutional: yes: weakness, alert Eyes: Yes: no symptom reported Pulmonary: Yes dyspnea Cardiovascular: Yes no symptom reported, Yes edema Gastrointestional: Yes: no symptom reported Genitourinary: Yes: no symptom reported Musculoskeletal: Yes: no symptom reported Skin: Yes no symptom reported Psychiatric/Neurological: Yes: no symptom reported Physical Exam General Appearance: no apparent distress Skin: warm Respiratory: decreased breath sounds Heart: S1S2 Abdomen: bowel sounds present Genitourinary: bladder flat Extremities: pulses present, edema Neurology: alert, oriented, follow commands Assessment Assessment IMP SOPHIE WITH CR OF 2.4-POSSIBLE THIS IS HIS NEW BASELINE CKD STAGE 3B IN 2017 WITH CR OF 1.5-SUSPECT STAGE 4 TO NEAR ESRD NOW ACUTE ON CHRONIC SYSTOLIC CHF CM WITH EF OF 20% AFIB RVT HX DM II HTN HX HEMATURIA NEPHROCALCINOSIS PLAN RENAL SONOGRAM NEG FOR ACUTE FINDINGS CHANGE LASIX TO PO NO NEED FOR DIALYSIS STRICT I/O AND FLUID RESTRICT CARDIOLOGY EVAL WILL FOLLOW SANDI MCDONALD MD May 06, 2021 10:54
--- NOTE | 2021-05-06 11:00 | PDOC ---
DIEGO ROBLEDO MACHINE TOOL REBUILDER 05/06/21 1100: CARDIO Progress Notes Date and Time Date of Service 05/06/21 Time of Evaluation 1100 Subjective Subjective: No Chest Pain, No shortness of breath, No Palpitations Vitals Vitals Vital Signs Date Time Temp Pulse Resp B/P (MAP) Pulse Ox O2 Delivery O2 Flow Rate FiO2 05/06/21 10:18 97.6 94 18 119/78 (92) 93 Room Air 97.6 05/06/21 08:00 2.0 Weight Weight [ ] Input and Output Intake and Output Intake and Output 05/06/21 07:00 Intake Total 1020 ml Output Total 4625 ml Balance -3605 ml Intake Oral 1020 ml Output Urine Total 4625 ml # Bowel Movements 1 Laboratory Labs Laboratory Tests Test 05/05/21 11:02 05/05/21 16:45 05/05/21 19:56 05/06/21 04:00 Glucose (Fingerstick) 173 mg/dL (70-99) 156 mg/dL (70-99) 200 mg/dL (70-99) Sodium Level 140 mmol/L (136-145) Potassium Level 3.9 mmol/L (3.5-5.1) Chloride Level 101 mmol/L (98-107) Carbon Dioxide Level 29 mmol/L (21-32) Anion Gap 10 (6-14) Blood Urea Nitrogen 48 mg/dL (8-26) Creatinine 2.3 mg/dL (0.7-1.3) Estimated GFR (Cockcroft-Gault) 29.2 Glucose Level 169 mg/dL (70-99) Calcium Level 8.6 mg/dL (8.5-10.1) Phosphorus Level 3.7 mg/dL (2.6-4.7) Magnesium Level 1.9 mg/dL (1.8-2.4) Test 05/06/21 07:30 Glucose (Fingerstick) 164 mg/dL (70-99) Microbiology Micro Microbiology 05/01/21 Urine Culture - Final, Complete Review of Systems Constitutional: yes: weakness, alert Eyes: Yes: no symptom reported Pulmonary: Yes dyspnea Cardiovascular: Yes no symptom reported, Yes edema Gastrointestional: Yes: no symptom reported Genitourinary: Yes: no symptom reported Musculoskeletal: Yes: no symptom reported Skin: Yes no symptom reported Psychiatric/Neurological: Yes: no symptom reported Physical Exam HEENT: Neck Supple W Full Motion Chest: Symmetric LUNGS: Other (diminished) Heart: irregularly irregular (AFIB ) Abdomen: Other (obese) Extremities: Other (2+ bilateral LE pitting edema) Neurology: alert, oriented, follow commands Assessment Assessment 1. Acute on chronic combined diastolic/systolic CHF: Better compensated 2. AFIB RVR: Rate now controlled 3. CAD: past CABG 2014, clinically stable 4. HTN; controlled 5. HLP; statin 6. DM2 7. Hx of covid-19 01/2020 8. SOPHIE on CKD; Cr improving 9. Possible JOSELUIS 10. Severe cardiomyopathy: EF at 20% Recommendations Needs further fluid offloading Continue milrinone and Lasix therapy Monitor I and O, renal functio n Metoprolol for rate control Eliquis for stroke prophylaxis Secondary prevention measures Probable outpatient ischemic evaluation Supportive care Justicifation of Admission Dx: Justifications for Admission: Justification of Admission Dx: Yes CHF: Cardiac Arrhythmias MARCO ANTONIO GRANADOS MD 05/06/21 1728: CARDIO Progress Notes Plan Plan Pt. seen and examined. Agree with above POSTAL CLERK note. Continue diuresis. Monitor renal function. Supportive care. DIEGO ROBLEDO APRN May 06, 2021 11:00 MARCO ANTONIO GRANADOS MD May 06, 2021 17:28
--- NOTE | 2021-05-06 11:38 | PDOC ---
[facility] [facility] PROGRESS NOTE Date of Service DOS: DATE: 05/06/21 TIME: 11:36 Chief Complaint Chief Complaint Acute on chronic systolic congestive heart failure Edema A. fib SOPHIE ATN Overweight History of CAD History of CKD History of bypass surgery History of Present Illness History of Present Illness 05/06/2021 Patient seen and examined Still on milrinone drip Discussed with case management Discussed with RN Chart reviewed Discussed with wound care team as well 05/05/2021 Patient seen and examined His is present Discussed with RN Chart reviewed He is still on milrinone drip 05/04/2021 Patient seen and examined He is still on milrinone drip Discussed with RN Chart reviewed 05/03/2021 Patient seen and examined He was placed on a milrinone drip this morning Also getting IV Lasix Chart reviewed Discussed with RN Discussed with case management 05/02/2021 Patient seen and examined Discussed with RN Chart reviewed He is up in the chair has a lot of edema on his lower extremities States he is still nauseated and weak Vitals/I&O Vitals/I&O: Vital Signs Date Time Temp Pulse Resp B/P (MAP) Pulse Ox O2 Delivery O2 Flow Rate FiO2 05/06/21 10:18 97.6 94 18 119/78 (92) 93 Room Air 97.6 05/06/21 08:00 2.0 I & O 0 05/05/21 05/05/21 05/06/21 15:00 23:00 07:00 Intake Total 420 ml 300 ml 300 ml Output Total 1075 ml 2600 ml 950 ml Balance -655 ml -2300 ml -650 ml Physical Exam General: Alert, Oriented X3, Cooperative Heart: Regular rate Lungs: Crackles Abdomen: Normal bowel sounds, Soft, No tenderness Extremities: No clubbing, Other (2+ EDEMA) Skin: No rashes, No breakdown Labs Labs: Laboratory Tests Test 05/05/21 16:45 05/05/21 19:56 05/06/21 04:00 05/06/21 07:30 Glucose (Fingerstick) 156 mg/dL (70-99) 200 mg/dL (70-99) 164 mg/dL (70-99) Sodium Level 140 mmol/L (136-145) Potassium Level 3.9 mmol/L (3.5-5.1) Chloride Level 101 mmol/L (98-107) Carbon Dioxide Level 29 mmol/L (21-32) Anion Gap 10 (6-14) Blood Urea Nitrogen 48 mg/dL (8-26) Creatinine 2.3 mg/dL (0.7-1.3) Estimated GFR (Cockcroft-Gault) 29.2 Glucose Level 169 mg/dL (70-99) Calcium Level 8.6 mg/dL (8.5-10.1) Phosphorus Level 3.7 mg/dL (2.6-4.7) Magnesium Level 1.9 mg/dL (1.8-2.4) Test 05/06/21 11:28 Glucose (Fingerstick) 193 mg/dL (70-99) Assessment and Plan Assessmemt and Plan Problems Medical Problems: (1) Acute kidney injury Status: Acute (2) Anasarca Status: Acute (3) Atrial fibrillation with rapid ventricular response Status: Acute (4) Congestive heart failure Status: Acute Acute on chronic systolic congestive heart failure Edema A. fib SOPHIE ATN Overweight History of CAD History of CKD History of bypass surgery Plan Hope to discharge once he is off the milrinone drip Continue metoprolol Eliquis Cardiac monitoring IV Lasix Wound care team to evaluate and treat Appreciate cardiology input next I's and O's Avoid nephrotoxin Trend labs PT OT if possible Home meds DVT prophylaxis Full code Long-term prognosis guarded Probable discharge tomorrow if he is off the milrinone drip Comment Review of Relevant I have reviewed the following items chuy (where applicable) has been applied. Justifications for Admission Other Justification A. fib RVR ARVIN LOWRY III DO May 06, 2021 11:38
[2021-05-06] MEDS: MILRINONE 20MG/100ML PREMIX 100 ML IV PRN (12:07)
[2021-05-06] MEDS ORDERED: MINERAL OIL/PETROLATUM TOPICAL CREAM 113GM JAR. TP PRN (13:15)
[2021-05-06 14:37] VITALS: BP 95/66
--- NOTE | 2021-05-06 14:54 | NUR ---
SS following up with discharge planning. SS reviewed pt chart and discussed with pt RN. Pt is currently on room air. Cardiology and Nephrology following. Wound care consulted. Pt on Milrinone drip. Not ready. SS will continue to follow for discharge planning.
[2021-05-06] MEDS: FUROSEMIDE 40 MG TABLET. PO SCH (16:51)
[2021-05-06 19:20] VITALS: BP 115/76
[2021-05-06] MEDS: ATORVASTATIN CALCIUM 40 MG TABLET. PO SCH (21:49)
[2021-05-06 22:36] VITALS: BP 85/60
[2021-05-07 02:35] VITALS: BP 112/69
[2021-05-07 05:31] LABS: CALCIUM 8.7 mg/dL (8.5-10.1); GFR 34.3; POTASSIUM 3.7 mmol/L (3.5-5.1)
[2021-05-07 06:58] VITALS: BP 122/75
[2021-05-07] MEDS: INSULIN LISPRO 300 UNITS/3 ML VIAL. SQ SCH ×3 (08:00→17:16)
[2021-05-07] MEDS: FUROSEMIDE 40 MG TABLET. PO SCH ×2 (08:28→16:17)
[2021-05-07] MEDS: ASPIRIN CHEWABLE 81 MG TABLET. PO SCH (08:29)
[2021-05-07] MEDS: METOPROLOL TART IMMED RELEASE 50 MG TABLET. PO SCH ×2 (08:29→21:53)
[2021-05-07] MEDS: APIXABAN 5 MG TABLET. PO SCH ×2 (08:29→21:52)
--- NOTE | 2021-05-07 09:30 | PDOC ---
DIEGO ROBLEDO STARCH DUMPER 05/07/21 0930: CARDIO Progress Notes Date and Time Date of Service 05/07/21 Time of Evaluation 1120 Subjective Subjective: No Chest Pain, No shortness of breath, No Palpitations, Other (swelling improving ) Vitals Vitals Vital Signs Date Time Temp Pulse Resp B/P (MAP) Pulse Ox O2 Delivery O2 Flow Rate FiO2 05/07/21 08:29 107 122/75 05/07/21 06:58 97.8 18 93 Room Air 97.8 05/06/21 08:00 2.0 Weight Weight [ ] Input and Output Intake and Output Intake and Output 05/07/21 07:00 Intake Total 1180 ml Output Total 2200 ml Balance -1020 ml Intake Oral 1180 ml Output Urine Total 2200 ml Laboratory Labs Laboratory Tests Test 05/06/21 11:28 05/06/21 16:53 05/06/21 20:44 05/07/21 04:00 Glucose (Fingerstick) 193 mg/dL (70-99) 192 mg/dL (70-99) 212 mg/dL (70-99) Sodium Level 140 mmol/L (136-145) Potassium Level 3.7 mmol/L (3.5-5.1) Chloride Level 101 mmol/L (98-107) Carbon Dioxide Level 30 mmol/L (21-32) Anion Gap 9 (6-14) Blood Urea Nitrogen 42 mg/dL (8-26) Creatinine 2.0 mg/dL (0.7-1.3) Estimated GFR (Cockcroft-Gault) 34.3 Glucose Level 181 mg/dL (70-99) Calcium Level 8.7 mg/dL (8.5-10.1) Magnesium Level 2.0 mg/dL (1.8-2.4) Test 05/07/21 06:58 Glucose (Fingerstick) 166 mg/dL (70-99) Microbiology Micro Microbiology 05/01/21 Urine Culture - Final, Complete Review of Systems Constitutional: yes: weakness, alert Eyes: Yes: no symptom reported Pulmonary: Yes dyspnea Cardiovascular: Yes no symptom reported, Yes edema Gastrointestional: Yes: no symptom reported Genitourinary: Yes: no symptom reported Musculoskeletal: Yes: no symptom reported Skin: Yes no symptom reported Psychiatric/Neurological: Yes: no symptom reported Physical Exam HEENT: Neck Supple W Full Motion Chest: Symmetric LUNGS: Other (diminished) Heart: irregularly irregular (AFIB ) Abdomen: Other (obese) Extremities: Other (1-2+ bilateral LE pitting edema) Neurology: alert, oriented, follow commands Assessment Assessment 1. Acute on chronic combined diastolic/systolic CHF: Better compensated 2. AFIB RVR: Rate now controlled 3. CAD: past CABG 2014, clinically stable 4. HTN; controlled 5. HLP; statin 6. DM2 7. Hx of covid-19 01/2020 8. SOPHIE on CKD; Cr improving 9. Possible JOSELUIS 10. Severe cardiomyopathy: EF at 20% Recommendations Discontinue milrinone Lasix therapy Monitor I and O, renal function Metoprolol for rate control; convert to Toprol given CMP No FRANKY/ARB with SOPHIE Consider addition of spironolactone Eliquis for stroke prophylaxis Secondary prevention Probable outpatient ischemic evaluation Consider outpatient cardioversion Supportive care Justicifation of Admission Dx: Justifications for Admission: Justification of Admission Dx: Yes CHF: Cardiac Arrhythmias MARCO ANTONIO GRANADOS MD 05/08/21 1204: CARDIO Progress Notes Plan Plan Late entry for 05/07/2021 Patient seen and examined. Agree with above nurse practitioner note DIEGO ROBLEDO APRN May 07, 2021 09:30 MARCO ANTONIO GRANADOS MD May 08, 2021 12:04
[2021-05-07 10:18] VITALS: BP 136/74
--- NOTE | 2021-05-07 10:53 | PDOC ---
Renal-Progress Notes Subjective Notes Notes NO NEW COMPLAINTS History of Present Illness Hx of present illness STABLE Vitals Vitals Vital Signs Date Time Temp Pulse Resp B/P (MAP) Pulse Ox O2 Delivery O2 Flow Rate FiO2 05/07/21 10:18 98.4 109 18 136/74 (94) 95 Room Air 98.4 05/07/21 08:00 2.0 Weight Weight [ ] I.O. Intake and Output Intake and Output 05/07/21 07:00 Intake Total 1180 ml Output Total 2200 ml Balance -1020 ml Intake Oral 1180 ml Output Urine Total 2200 ml Labs Labs Laboratory Tests Test 05/06/21 11:28 05/06/21 16:53 05/06/21 20:44 05/07/21 04:00 Glucose (Fingerstick) 193 mg/dL (70-99) 192 mg/dL (70-99) 212 mg/dL (70-99) Sodium Level 140 mmol/L (136-145) Potassium Level 3.7 mmol/L (3.5-5.1) Chloride Level 101 mmol/L (98-107) Carbon Dioxide Level 30 mmol/L (21-32) Anion Gap 9 (6-14) Blood Urea Nitrogen 42 mg/dL (8-26) Creatinine 2.0 mg/dL (0.7-1.3) Estimated GFR (Cockcroft-Gault) 34.3 Glucose Level 181 mg/dL (70-99) Calcium Level 8.7 mg/dL (8.5-10.1) Magnesium Level 2.0 mg/dL (1.8-2.4) Test 05/07/21 06:58 Glucose (Fingerstick) 166 mg/dL (70-99) Micro Micro Microbiology 05/01/21 Urine Culture - Final, Complete Review of Systems Constitutional: yes: weakness, alert Eyes: Yes: no symptom reported Pulmonary: Yes dyspnea Cardiovascular: Yes no symptom reported, Yes edema Gastrointestional: Yes: no symptom reported Genitourinary: Yes: no symptom reported Musculoskeletal: Yes: no symptom reported Skin: Yes no symptom reported Psychiatric/Neurological: Yes: no symptom reported Physical Exam General Appearance: no apparent distress Skin: warm Respiratory: decreased breath sounds Heart: S1S2 Abdomen: bowel sounds present Genitourinary: bladder flat Extremities: pulses present, edema Neurology: alert, oriented, follow commands Assessment Assessment IMP SOPHIE WITH IMPROVED CR OF 2.0-POSSIBLE THIS IS HIS NEW BASELINE CKD STAGE 3B IN 2017 WITH CR OF 1.5-SUSPECT STAGE 4 TO NEAR ESRD NOW ACUTE ON CHRONIC SYSTOLIC CHF CM WITH EF OF 20% AFIB RVT HX DM II HTN HX HEMATURIA NEPHROCALCINOSIS PLAN RENAL SONOGRAM NEG FOR ACUTE FINDINGS CONT WITH PO LASIX NO NEED FOR DIALYSIS STRICT I/O AND FLUID RESTRICT CARDIOLOGY EVAL WILL FOLLOW PRN SANDI MCDONALD MD May 07, 2021 10:53
--- NOTE | 2021-05-07 10:56 | PDOC ---
[employer] [facility] PROGRESS NOTE Date of Service DOS: DATE: 05/07/21 TIME: 10:55 Chief Complaint Chief Complaint Acute on chronic systolic congestive heart failure Edema A. fib SOPHIE ATN Overweight History of CAD History of CKD History of bypass surgery History of Present Illness History of Present Illness 05/07/2021 Patient seen and examined Discussed with RN Chart reviewed He is still on the milrinone drip and IV Lasix 05/06/2021 Patient seen and examined Still on milrinone drip Discussed with case management Discussed with RN Chart reviewed Discussed with wound care team as well 05/05/2021 Patient seen and examined His is present Discussed with RN Chart reviewed He is still on milrinone drip 05/04/2021 Patient seen and examined He is still on milrinone drip Discussed with RN Chart reviewed 05/03/2021 Patient seen and examined He was placed on a milrinone drip this morning Also getting IV Lasix Chart reviewed Discussed with RN Discussed with case management 05/02/2021 Patient seen and examined Discussed with RN Chart reviewed He is up in the chair has a lot of edema on his lower extremities States he is still nauseated and weak Vitals/I&O Vitals/I&O: Vital Signs Date Time Temp Pulse Resp B/P (MAP) Pulse Ox O2 Delivery O2 Flow Rate FiO2 05/07/21 10:18 98.4 109 18 136/74 (94) 95 Room Air 98.4 05/07/21 08:00 2.0 I & O 05/06/21 05/06/21 05/07/21 15:00 23:00 07:00 Intake Total 580 ml 600 ml 0 ml Output Total 800 ml 1400 ml Balance -220 ml -800 ml 0 ml Physical Exam General: Alert, Oriented X3, Cooperative Heart: Regular rate Lungs: Crackles Abdomen: Normal bowel sounds, Soft, No tenderness Extremities: No clubbing, Other (2+ EDEMA) Skin: No rashes, No breakdown Labs Labs: Laboratory Tests Test 05/06/21 11:28 05/06/21 16:53 05/06/21 20:44 05/07/21 04:00 Glucose (Fingerstick) 193 mg/dL (70-99) 192 mg/dL (70-99) 212 mg/dL (70-99) Sodium Level 140 mmol/L (136-145) Potassium Level 3.7 mmol/L (3.5-5.1) Chloride Level 101 mmol/L (98-107) Carbon Dioxide Level 30 mmol/L (21-32) Anion Gap 9 (6-14) Blood Urea Nitrogen 42 mg/dL (8-26) Creatinine 2.0 mg/dL (0.7-1.3) Estimated GFR (Cockcroft-Gault) 34.3 Glucose Level 181 mg/dL (70-99) Calcium Level 8.7 mg/dL (8.5-10.1) Magnesium Level 2.0 mg/dL (1.8-2.4) Test 05/07/21 06:58 Glucose (Fingerstick) 166 mg/dL (70-99) Assessment and Plan Assessmemt and Plan Problems Medical Problems: (1) Acute kidney injury Status: Acute (2) Anasarca Status: Acute (3) Atrial fibrillation with rapid ventricular response Status: Acute (4) Congestive heart failure Status: Acute Acute on chronic systolic congestive heart failure Edema A. fib SOPHIE ATN Overweight History of CAD History of CKD History of bypass surgery Plan Hope to discharge once he is off the milrinone drip For now continue the following; Fluid offloading Continue metoprolol Eliquis Cardiac monitoring IV Lasix Wound care team to evaluate and treat Appreciate cardiology input next I's and O's Avoid nephrotoxin Trend labs PT OT if possible Home meds DVT prophylaxis Full code Long-term prognosis guarded Probable discharge tomorrow if he is off the milrinone drip Comment Review of Relevant I have reviewed the following items chuy (where applicable) has been applied. Medications: Current Medications Medications (Trade) Dose Ordered Sig/Lina Route PRN Reason Start Time Stop Time Status Last Admin Dose Admin Furosemide (Lasix) 40 mg [id number] PO 05/06/21 16:00 05/07/21 08:28 Justifications for Admission Other Justification A. fib RVR ARVIN LOWRY III DO May 07, 2021 10:56
--- NOTE | 2021-05-07 13:17 | NUR ---
SS following up with discharge planning. SS reviewed pt chart and discussed with pt RN. Pt is currently on room air. Cardiology and Nephrology following. Discharge plan is currently to home when medically ready for discharge. SS will continue to follow for discharge planning.
[2021-05-07 14:04] VITALS: BP 128/78
[2021-05-07 19:06] VITALS: BP 150/88
[2021-05-07] MEDS: ATORVASTATIN CALCIUM 40 MG TABLET. PO SCH (21:52)
[2021-05-07 22:34] VITALS: BP 144/87
[2021-05-08 02:21] VITALS: BP 106/79
[2021-05-08 03:53] LABS: CALCIUM 9.2 mg/dL (8.5-10.1); GFR 34.3; POTASSIUM 3.8 mmol/L (3.5-5.1)
[2021-05-08 07:00] VITALS: BP 127/77
[2021-05-08] MEDS: INSULIN LISPRO 300 UNITS/3 ML VIAL. SQ SCH ×2 (08:00→11:53)
[2021-05-08] MEDS: APIXABAN 5 MG TABLET. PO SCH (08:19)
[2021-05-08] MEDS: FUROSEMIDE 40 MG TABLET. PO SCH (08:20)
[2021-05-08] MEDS: ASPIRIN CHEWABLE 81 MG TABLET. PO SCH (08:20)
--- NOTE | 2021-05-08 08:41 | PDOC ---
[employer] PROGRESS NOTE Date of Service DOS: DATE: 05/08/21 TIME: 08:40 Chief Complaint Chief Complaint Acute on chronic systolic congestive heart failure Edema A. fib SOPHIE ATN Overweight History of CAD History of CKD History of bypass surgery History of Present Illness History of Present Illness 05/08/2021 Patient seen and examined He is off the milrinone drip Up in chair smiling wants to go home 05/07/2021 Patient seen and examined Discussed with RN Chart reviewed He is still on the milrinone drip and IV Lasix 05/06/2021 Patient seen and examined Still on milrinone drip Discussed with case management Discussed with RN Chart reviewed Discussed with wound care team as well 05/05/2021 Patient seen and examined His is present Discussed with RN Chart reviewed He is still on milrinone drip 05/04/2021 Patient seen and examined He is still on milrinone drip Discussed with RN Chart reviewed 05/03/2021 Patient seen and examined He was placed on a milrinone drip this morning Also getting IV Lasix Chart reviewed Discussed with RN Discussed with case management 05/02/2021 Patient seen and examined Discussed with RN Chart reviewed He is up in the chair has a lot of edema on his lower extremities States he is still nauseated and weak Vitals/I&O Vitals/I&O: Vital Signs Date Time Temp Pulse Resp B/P (MAP) Pulse Ox O2 Delivery O2 Flow Rate FiO2 05/08/21 08:20 117 127/77 05/08/21 07:00 98.0 18 95 Room Air 98.0 05/07/21 08:00 2.0 I & O 05/07/21 05/07/21 05/08/21 15:00 23:00 07:00 Intake Total 1000 ml 180 ml 200 ml Output Total 1100 ml 2600 ml 550 ml Balance -100 ml -2420 ml -350 ml Physical Exam General: Alert, Oriented X3, Cooperative Heart: Regular rate Lungs: Crackles Abdomen: Normal bowel sounds, Soft, No tenderness Extremities: No clubbing, Other (2+ EDEMA) Skin: No rashes, No breakdown Labs Labs: Laboratory Tests Test 05/07/21 11:16 05/07/21 16:30 05/07/21 20:27 05/08/21 02:30 Glucose (Fingerstick) 172 mg/dL (70-99) 230 mg/dL (70-99) 206 mg/dL (70-99) Sodium Level 141 mmol/L (136-145) Potassium Level 3.8 mmol/L (3.5-5.1) Chloride Level 102 mmol/L (98-107) Carbon Dioxide Level 30 mmol/L (21-32) Anion Gap 9 (6-14) Blood Urea Nitrogen 40 mg/dL (8-26) Creatinine 2.0 mg/dL (0.7-1.3) Estimated GFR (Cockcroft-Gault) 34.3 Glucose Level 168 mg/dL (70-99) Calcium Level 9.2 mg/dL (8.5-10.1) Test 05/08/21 07:10 Glucose (Fingerstick) 136 mg/dL (70-99) Assessment and Plan Assessmemt and Plan Problems Medical Problems: (1) Acute kidney injury Status: Acute (2) Anasarca Status: Acute (3) Atrial fibrillation with rapid ventricular response Status: Acute (4) Congestive heart failure Status: Acute Acute on chronic systolic congestive heart failure Edema A. fib SOPHIE ATN Overweight History of CAD History of CKD History of bypass surgery Plan Now that he is off the milrinone drip I suspect we could go ahead and discharge with close outpatient follow-up For now continue the following; Fluid offloading Continue metoprolol Eliquis Cardiac monitoring IV Lasix Wound care Appreciate cardiology input next I's and O's Avoid nephrotoxin Trend labs PT OT if possible Home meds DVT prophylaxis Full code Discharge if okay with cardiology Comment Review of Relevant I have reviewed the following items chuy (where applicable) has been applied. Medications: Current Medications Medications (Trade) Dose Ordered Sig/Lina Route PRN Reason Start Time Stop Time Status Last Admin Dose Admin Metoprolol Succinate (Toprol Xl) 100 mg DAILY PO 05/08/21 09:00 05/08/21 08:20 Justifications for Admission Other Justification A. fib RVR ARVIN LOWRY III DO May 08, 2021 08:41
[2021-05-08] MEDS ORDERED: POTA-121 PO (08:44)
[2021-05-08] MEDS ORDERED: METO-247 PO (08:44)
[2021-05-08] MEDS ORDERED: FURO40TA4 PO (08:44)
[2021-05-08] MEDS ORDERED: OXYC1TAB15 PO (08:44)
[2021-05-08] MEDS ORDERED: APIX5TAB PO (08:44)
--- NOTE | 2021-05-08 08:46 | SNU/HH DC ---
DISCHARGE WITH HOME HEALTH DISCHARGE INFORMATION: Final Diagnosis: Problems Medical Problems: (1) Acute kidney injury Status: Acute (2) Anasarca Status: Acute (3) Atrial fibrillation with rapid ventricular response Status: Acute (4) Congestive heart failure Status: Acute Condition on Discharge: Stable CODE STATUS: Code Status: Full HOME HEALTH: Face to Face: I certify this patient is under my care and that I, or a nurse practitioner or physician's kindergarten assistant working with me, had a face to face encounter that meets the physician face to face encounter requirements with this patient on []. Medical Complications: CHF Correction For: Assess Cardiopulm Status RN For Eval/Treatment: Yes Physical Therapy For: Evalulation/Treatment Occupational Therapy For: Evaluation/Treatment Home Health Aide For: Self-care CLIENT SOLUTIONS SPECIALIST For: Community Resources Pt Meets Homebound Status: Poor coordination w/ amb. POST DISCHARGE ORDERS: Activity Instructions for Disc: Resume previous activity DIET AFTER DISCHARGE: Cardiac CHECKS AFTER DISCHARGE: Checks after discharge: Check blood press - daily, Check blood sugar, ac/hs, Check your Temp as needed CERTIFICATION STATEMENT: Certification Statement: Certification Statement: Based on the above finding, I certify that this patient is confined to the home and needs intermittent halfway care, physical therapy and/or speech therapy, or continues to need occupational therapy.~ This patient is under my care, and I have initiated the establishment of the plan of care.~ This patient will be followed by myself or a community physician who will periodically review the plan of care. Home Meds Active Scripts Potassium Chloride (KLOR-CON M20) 20 Meq Tab.er.prt, 1 TAB PO DAILY for . for 30 Days, #30 TAB 0 Refills Prov:CASTLE,NIAL K III DO 05/08/21 Furosemide (FUROSEMIDE) 40 Mg Tablet, 40 MG PO BID94 for . for 30 Days, #60 TAB Prov:CASTLE,NIAL K III DO 05/08/21 Oxycodone/Apap 5-325 (PERCOCET 5-325 MG TABLET ) 1 Each Tablet, 1 TAB PO PRN Q6HRS PRN for PAIN for 10 Days, #20 TAB Prov:CASTLE,NIAL K III DO 05/08/21 Metoprolol Succinate (METOPROLOL SUCCINATE ( XL )) 100 Mg Tab.er.24h, 100 MG PO DAILY for . for 30 Days, #30 TAB.SR Prov:ARVIN LOWRY K III DO 05/08/21 Apixaban (ELIQUIS) 5 Mg Tablet, 5 MG PO BID for . for 30 Days, #60 TAB Prov:ARVIN LOWRY K III DO 05/08/21 Reported Medications Dulaglutide (Trulicity) 1.5 Mg/0.5 Ml Pen.injctr, 1.5 MG SQ WEEKLY for DIABETIC, EACH TRULICITY 1.5MG ONCE WEEKLY ON Thursday05/01/21 Metoprolol Tartrate (METOPROLOL TARTRATE) 25 Mg Tablet, 25 MG PO ESTUARDO for FOR HYPERTENSION, #60 TAB 0 Refills METOPROLOL 25MG PO, TAKE 03/02 TAB BY MOUTH DAILY 05/01/21 Linagliptin (TRADJENTA) 5 Mg Tablet, 5 MG PO DAILY for TYPE 2 DIABETES, TAB 05/01/21 Atorvastatin Calcium (ATORVASTATIN CALCIUM) 40 Mg Tablet, 80 MG PO HS for FOR CHOLESTEROL, #30 TAB 0 Refills 05/01/21 Ezetimibe (ZETIA) 10 Mg Tablet, 10 MG PO DAILY for CHOLESTEROL, TAB 05/01/21 Aspirin (ASPIRIN) 81 Mg Tab.chew, 81 MG PO DAILY for BLOOD THINNER, TAB.CHEW 05/01/21 Insulin Glargine,Hum.rec.anlog (LANTUS SOLOSTAR) 100 Unit/1 Ml Insuln.pen, 30 UNIT SQ QHS for DIABETIC, #15 ML 3 Refills 05/01/21 ARVIN LOWRY III DO May 08, 2021 08:46
[2021-05-08] MEDS ORDERED: METOPROLOL SUCC 24HR ER 100 MG TAB.ER.24H. PO SCH (09:00)
[2021-05-08 10:16] VITALS: BP 118/87
--- NOTE | 2021-05-08 10:39 | PDOC ---
Renal-Progress Notes Subjective Notes Notes NO NEW COMPLAINTS History of Present Illness Hx of present illness STABLE Vitals Vitals Vital Signs Date Time Temp Pulse Resp B/P (MAP) Pulse Ox O2 Delivery O2 Flow Rate FiO2 05/08/21 10:16 98.3 100 18 118/87 (97) 98 Room Air 98.3 05/07/21 08:00 2.0 Weight Weight [ ] I.O. Intake and Output Intake and Output 05/08/21 07:00 Intake Total 1380 ml Output Total 4250 ml Balance -2870 ml Intake Oral 1380 ml Output Urine Total 4250 ml Labs Labs Laboratory Tests Test 05/07/21 11:16 05/07/21 16:30 05/07/21 20:27 05/08/21 02:30 Glucose (Fingerstick) 172 mg/dL (70-99) 230 mg/dL (70-99) 206 mg/dL (70-99) Sodium Level 141 mmol/L (136-145) Potassium Level 3.8 mmol/L (3.5-5.1) Chloride Level 102 mmol/L (98-107) Carbon Dioxide Level 30 mmol/L (21-32) Anion Gap 9 (6-14) Blood Urea Nitrogen 40 mg/dL (8-26) Creatinine 2.0 mg/dL (0.7-1.3) Estimated GFR (Cockcroft-Gault) 34.3 Glucose Level 168 mg/dL (70-99) Calcium Level 9.2 mg/dL (8.5-10.1) Test 05/08/21 07:10 Glucose (Fingerstick) 136 mg/dL (70-99) Micro Micro Microbiology 05/01/21 Urine Culture - Final, Complete Review of Systems Constitutional: yes: weakness, alert Eyes: Yes: no symptom reported Pulmonary: Yes dyspnea Cardiovascular: Yes no symptom reported, Yes edema Gastrointestional: Yes: no symptom reported Genitourinary: Yes: no symptom reported Musculoskeletal: Yes: no symptom reported Skin: Yes no symptom reported Psychiatric/Neurological: Yes: no symptom reported Physical Exam General Appearance: no apparent distress Skin: warm Respiratory: decreased breath sounds Heart: S1S2 Abdomen: bowel sounds present Genitourinary: bladder flat Extremities: pulses present, edema Neurology: alert, oriented, follow commands Assessment Assessment IMP SOPHIE WITH IMPROVED CR OF 2.0-STABLE CKD STAGE 3B IN 2017 WITH CR OF 1.5 ACUTE ON CHRONIC SYSTOLIC CHF CM WITH EF OF 20% AFIB RVT HX DM II HTN HX HEMATURIA NEPHROCALCINOSIS PLAN RENAL SONOGRAM NEG FOR ACUTE FINDINGS CONT DIURETICS NO NEED FOR DIALYSIS STRICT I/O AND FLUID RESTRICT CARDIOLOGY EVAL WILL FOLLOW PRN SANDI MCDONALD MD May 08, 2021 10:39
--- NOTE | 2021-05-08 10:50 | PDOC ---
DIEGO ROBLEDO BUTTON RIVETER 05/08/21 1050: CARDIO Progress Notes Date and Time Date of Service 05/08/21 Time of Evaluation 1040 Subjective Subjective: No Chest Pain, No shortness of breath, No Palpitations, Other (swelling improving ) Vitals Vitals Vital Signs Date Time Temp Pulse Resp B/P (MAP) Pulse Ox O2 Delivery O2 Flow Rate FiO2 05/08/21 10:16 98.3 100 18 118/87 (97) 98 Room Air 98.3 05/07/21 08:00 2.0 Weight Weight [ ] Input and Output Intake and Output Intake and Output 05/08/21 07:00 Intake Total 1380 ml Output Total 4250 ml Balance -2870 ml Intake Oral 1380 ml Output Urine Total 4250 ml Laboratory Labs Laboratory Tests Test 05/07/21 11:16 05/07/21 16:30 05/07/21 20:27 05/08/21 02:30 Glucose (Fingerstick) 172 mg/dL (70-99) 230 mg/dL (70-99) 206 mg/dL (70-99) Sodium Level 141 mmol/L (136-145) Potassium Level 3.8 mmol/L (3.5-5.1) Chloride Level 102 mmol/L (98-107) Carbon Dioxide Level 30 mmol/L (21-32) Anion Gap 9 (6-14) Blood Urea Nitrogen 40 mg/dL (8-26) Creatinine 2.0 mg/dL (0.7-1.3) Estimated GFR (Cockcroft-Gault) 34.3 Glucose Level 168 mg/dL (70-99) Calcium Level 9.2 mg/dL (8.5-10.1) Test 05/08/21 07:10 Glucose (Fingerstick) 136 mg/dL (70-99) Microbiology Micro Microbiology 05/01/21 Urine Culture - Final, Complete Review of Systems Constitutional: yes: weakness, alert Eyes: Yes: no symptom reported Pulmonary: Yes dyspnea Cardiovascular: Yes no symptom reported, Yes edema Gastrointestional: Yes: no symptom reported Genitourinary: Yes: no symptom reported Musculoskeletal: Yes: no symptom reported Skin: Yes no symptom reported Psychiatric/Neurological: Yes: no symptom reported Physical Exam HEENT: Neck Supple W Full Motion Chest: Symmetric LUNGS: Other (diminished) Heart: irregularly irregular (AFIB ) Abdomen: Other (obese) Extremities: Other (1+ bilateral LE pitting edema) Neurology: alert, oriented, follow commands Assessment Assessment 1. Acute on chronic combined diastolic/systolic CHF: improved s/p diuresis 2. AFIB RVR: Rate controlled overall 3. CAD: past CABG 2014, clinically stable 4. HTN; controlled 5. HLP; statin 6. DM2 7. Hx of covid-19 01/2020 8. SOPHIE on CKD; Cr improving 9. Possible JOSELUIS 10. Severe cardiomyopathy: EF at 20% Recommendations Lasix therapy Metoprolol for rate control No FRANKY/ARB with SOPHIE Consider addition of spironolactone Eliquis for stroke prophylaxis Secondary prevention Probable outpatient ischemic evaluation Consider outpatient cardioversion Supportive care Follow up with Dr. Rolon has been arranged Justicifation of Admission Dx: Justifications for Admission: Justification of Admission Dx: Yes CHF: Cardiac Arrhythmias MARCO ANTONIO ROLON MD 05/09/21 0410: CARDIO Progress Notes Plan Plan Late entry for 05/08/21 Pt. seen and examined. Agree with above RECEPTIONIST CLERK note. Supportive care. DIEGO ROBLEDO APRN May 08, 2021 10:50 MARCO ANTONIO ROLON MD May 09, 2021 04:10
--- NOTE | 2021-05-08 13:21 | NUR ---
SS following up with discharge planning. SS reviewed pt chart and discussed with pt RN. Pt is currently on room air. Discharge orders received for home with home healthcare. SS met with pt to discuss discharge planning and home healthcare services. Pt agreeable to home healthcare with no preference of company. Discharge orders and referral phoned and faxed to [facility], ; fax [phone]. Pt's RN notified.
--- NOTE | 2021-05-08 16:40 | NUR ---
Discharge Note: SHONDA PLUMMER 6 [facility] Discharge instructions and discharge home medications reviewed with Patient and a copy given. All questions have been answered and understanding verbalized. The following instructions and handouts were given: discharge instructions, follow ups, med list, med education, CHF education, SOPHIE education. Discontinued lines and drains: Peripheral IV intact. Patient discharged to Home with home health for wound care with Family Member via Wheelchair at 1640. Wound on top of R foot pictured & placed in chart.
== END 2021-05-08 13:50 | disposition home health service (06) | DRG 291 ==
LOC: ER 14:13 → ED HOLD 16:50 → 6 SOUTH 18:55
PROVIDERS: ADMIT Internal Medicine; ATTEND Internal Medicine
DX: I13.0 Hypertensive heart and chronic kidney disease with heart failure and stage 1 through stage 4 chronic kidney disease, or unspecified chronic kidney disease (principal); N17.0 Acute kidney failure with tubular necrosis; I50.43 Acute on chronic combined systolic (congestive) and diastolic (congestive) heart failure; N18.4 Chronic kidney disease, stage 4 (severe); E11.22 Type 2 diabetes mellitus with diabetic chronic kidney disease; E66.01 Morbid (severe) obesity due to excess calories; E78.00 Pure hypercholesterolemia, unspecified; E78.5 Hyperlipidemia, unspecified; E83.59 Other disorders of calcium metabolism; I25.5 Ischemic cardiomyopathy; I48.91 Unspecified atrial fibrillation; N29 Other disorders of kidney and ureter in diseases classified elsewhere; I95.9 Hypotension, unspecified; G47.33 Obstructive sleep apnea (adult) (pediatric); I25.10 Atherosclerotic heart disease of native coronary artery without angina pectoris; I25.2 Old myocardial infarction; Z82.49 Family history of ischemic heart disease and other diseases of the circulatory system; Z86.16 Personal history of COVID-19; Z87.442 Personal history of urinary calculi; Z87.891 Personal history of nicotine dependence; Z95.1 Presence of aortocoronary bypass graft; Z68.37 Body mass index [BMI] 37.0-37.9, adult; Z88.0 Allergy status to penicillin; Z79.84 Long term (current) use of oral hypoglycemic drugs
CPT/HCPCS: 36415; 71045; 76770; 80048; 80053; 81001; 82962; 83735; 83880; 84100; 84443; 84484; 85025; 85520; 85610; 85730; 87086; 93005; 93308; 96361; 96365; 96375; J1160; J1644; J1815; J1940; J2260; J2405; J3490; J7030; J7060; 99285-25; G0378

== ENCOUNTER → 2021-07-19 | Outpatient (CLI) | payer OTHER ==
[~2021-07-19] MED LIST: APIX5TAB PO; ASPI-630 PO; ATOR40TA59 PO; DULA1.5P SQ; EZET10TA20 PO; FURO40TA4 PO; INSU100I13 SQ; LINA5TAB PO; METO-247 PO; METO25TA4 PO; OXYC1TAB15 PO; POTA-121 PO; REGADENOSON 0.4 MG/5 ML DISP.SYRIN. IV ONE
--- NOTE | 2021-07-19 16:00 | RAD ---
MR#: [id number] Date of Study: 07/19/2021 Ordering Physician: MARCO ANTONIO GRANADOS, Referring Physician: DARIAN HANLEY Tech: JUSTO Moss APPROVED REPORT Test Type: Pharmacological Stress Nurse/Tech: Cristian Hdz RN Test Indications: CAD Cardiac History: A-fib, CABG 2014, CHF, HTN, x-smoker, DM Medications: See Electronic Medical Record Medical History: See Electronic Medical Record Resting ECG: A-Fib Resting Heart Rate: 94 bpm Resting Blood Pressure: 125/68mmHg Pretest Chest Pain: None Nurse/Tech Notes Lungs CTA, S1S2 Consent: The procedure was explained to the patient in lay terms. Informed consent was witnessed. Jovan eout was entered into [employer]. History and Stress Test performed by JUSTO Moss Pharm. Details Pharmacologic stress testing was performed using 0.4mg per 5ml of regadenoson given intravenously ove r 7-10 seconds. Stress Symptoms No chest pain or symptoms. POST EXERCISE Reason for Termination: Infusion complete Max HR: 119 bpm Max Blood Pressure: 115/57mmHg Blood Pressure response to exercise: Normal blood pressure response during stress. Heart Rate response to exercise: normal response Chest Pain: No. Arrhythmia: Yes. PVC ST Change: No. INTERPRETATION Stress EKG Conclusion: Baseline EKG showed atrial fibrillation with old inferior infarct. Nondiagnos tic changes at peak stress. No other arrhythmias. Imaging Protocol IMAGE PROTOCOL: Rest Tc-99m/stress Tc-99m 1 day Rest: Stress: Viability: Radiopharm.Tc99m TorbdlenyCc25w Sestamibi Sqpe72zRw 33mCi Duration 15min. 13min. Img Date 07/19/2021 07/19/2021 Inj-Img [id number]. 60min. Rest Admin Site:IV - Left AntecubitalAdministrator:JUSTO Moss Stress Admin Site: IV - Left AntecubitalAdministrator: Bill Vanessa, RT (R)(N) STRESS DATA End Diast. Vol.161.0mlLVEDV index BSA80.0ml End Syst. Vol.107.0mlLVESV index BSA53.0ml Myocardial Yglx378.0gEject. Slflupoi63.0% Stress Scores Regional WT2.00Summed WT42.00 Regional WM2.00Summed WM24.00 LV Perfusion Scintigraphic images showed small fixed defect involving the basal inferior wall consistent with prio r myocardial infarction. No other fixed or reversible defects were seen. Wall Motion Abnormal septal motion most probably secondary to postoperative state. The ejection fraction is calc ulated at 38%. LV Perf. Quant 17 Seg. SSS3.00 17 Seg. SRS5.00 17 Seg. SDS1.00 Stress Defect Extent (% LAD)6.90Rest Defect Extent (% LAD)3.10Rev. Defect Extent (% LAD)1.90 Stress Defect Extent (% LCX) 0.00Rest Defect Extent (% LCX)0.00Rev. Defect Extent (% LCX)0.00 Stress Defect Extent (% RCA)22.20Rest Defect Extent (% RCA)48.90Rev. Defect Extent (% RCA)0.00 Stress Defect Extent (% CALOS)8.50Rest Defect Extent (% CALOS)12.40Rev. Defect Extent (% CALOS)0.70 Conclusion 1. Regadenoson cardioisotope stress test showed small basal inferior wall infarct without any ischemi a. 2. Abnormal septal motion most probably secondary to postoperative state. The ejection fraction is c alculated at 38%. 3. Intermediate risk for cardiac events based on diminished LV systolic function. Signed by : David Clay, Electronically Approved : 07/19/2021 15:59:44
== END ==
LOC: NM 07:48
PROVIDERS: ATTEND Internal Medicine Cardiovascular Disease
DX: I21.9 Acute myocardial infarction, unspecified (principal); I25.5 Ischemic cardiomyopathy; I51.0 Cardiac septal defect, acquired
CPT/HCPCS: 78452; 93017; A9500; J2785